=== PATIENT | male | born 1950 | race Caucasian/White ===

== ENCOUNTER 2023-10-03 18:46 | Emergency (ER) | payer MEDICARE, OTHER, SELFPAY ==
[2023-10-03 18:58] VITALS: BP 159/74
--- NOTE | 2023-10-03 19:31 | ED.GENMED ---
History of Present Illness
General
Chief Complaint: Skin Problem
Source: patient
Exam Limitations: none
Time Seen by Provider: 10/03/23 19:07
Travel History
Have you had any contact with someone who has COVID-19?: No
Do you have any symptoms of coronavirus? Fever > 100 degrees, chills, cough, shortness of breath, sore throat, loss of taste or smell, muscle aches, or headache?: No
History of Present Illness
History of Present Illness:
This is a 73 year old male that comes in with c/o right let possible infection. State that he has had swelling in the legs for the past 2 years and this goes up and down. States that the right leg is more swollen. States that he had a blister on the
right lower leg a week ago and he had an itch and went to scratch the itch and blister opened and drained. States that today there is some burning at the open area and it felt red and warm. States that he did take a Lasix 20mg today that he takes
occasionally. Denies any fever, chills, chest pain, SOB, abd pain, nausea, vomiting, diarrhea, headache, dizziness, urinary burning.
Past History
Past History
ED Past Medical History: HTN and Other (Chronic neck/back pain, DVT/PE, Cellulitis, )
ED Past Surgical History: Orthopedic (Neck fusion, Lumbar laminectomy T12, L1, L2, L3 fusion with rods and discs, Decompression herniate disc. )
Social History
Tobacco: Non-smoker
Alcohol: None
Drug: None
Personal:
Living: with family
Employment: Retired
Family History
Family History: Hypertension and CAD
Review of Systems
Review of Systems
All Other Systems: ROS reviewed and negative except as documented in HPI and ROS
Constitutional: Reports no symptoms; Denies fever or chills
EENT: Reports no symptoms
Respiratory: Reports no symptoms; Denies cough or trouble breathing
Cardiac: Reports no symptoms; Denies chest pain
ABD/GI: Reports no symptoms; Denies abdominal pain, nausea, vomiting or diarrhea
: Reports no symptoms
Musculoskeletal: Reports edema (Increased right leg)
Skin: Reports other (Open area on the right lower leg with redness and increased warmth)
Neurological: Reports no symptoms; Denies dizzy or headache
Psychiatric: Reports no symptoms
Phy Exam
General Physical Exam
General Presentation: well appearing and no apparent distress
General age: appears stated age
General Skin: warm and dry
General Habitus: elderly
General Mental: alert
General Hydration: appears well hydrated
ENT Exam
ENT Exam: TM's normal, pharynx normal and neck supple
Eye Exam
Eye Exam: EOMI
Cardiovascular Exam
Cardiovascular Exam: regular rate/rhythm and normal peripheral pulses
Pulmonary Exam
Pulmonary Exam: lungs clear, no respiratory distress, no rales, chest non tender, no crackles, no rhonchi, no wheezing and no cough
Gastrointestinal Exam
Gastrointestinal Exam: normal bowel sounds, non tender, soft, no organomegaly, no pulsatile mass, non distended and other (Obese)
Musculoskeletal Exam
Musculoskeletal Exam: full ROM and edema (Bilateral lower leg edema R>L +2 pitting, )
Skin Exam
Skin Exam: normal color, warm/dry, no rash, no petechia and other (quarter size open area on the medial posterior lower leg calf with increased redness and warmth)
Psychiatric Exam
Psychiatric Exam: normal mood/affect
Course
Orders/Labs/Results
Orders:
Orders
10/03/23 19:30
Legs, Bilateral US [US Periph Venous LOWER Ext Broderick] Urgent
Comment: history of DVT
Reason For Exam: lower leg swelling R>L
10/03/23 19:34
Cephalexin Monohydrate [Keflex] 500 mg PO NOW STA
10/03/23 20:02
Complete Blood Count/With Diff Urgent
Comprehensive Metabolic Panel Urgent
Lactate Level [Lactic Acid] Urgent
Abnormal Lab Results
10/03/23
20:02
RDW 14.7 H %
(11.5-14.5)
Abs Immat Gran (auto) 0.1 H 10^3/uL
(0-0.05)
Absolute Lymphs (auto) 1.1 L 10^3/uL
(1.2-3.4)
Immature Gran % 0.8 H %
(0-0.5)
Lymphocytes % 17.1 L %
(20.5-51.1)
BUN 21 H mg/dl
(9-20)
Glucose 114 H mg/dl
(70-99)
10/03/23 20:02
10/03/23 20:02
Very slight Dehydration. Glucose nonfasting. Lactic acid 1.2
Vital Signs
Initial and Last Documented VS:
Initial Vital Signs
Temp Pulse Resp BP Pulse Ox
98.3 F 84 18 159/74 95
10/03/23 18:58 10/03/23 18:58 10/03/23 18:58 10/03/23 18:58 10/03/23 18:58
Last Documented Vital Signs
Temp Pulse Resp BP Pulse Ox
98.0 F 74 18 141/85 95
10/03/23 22:20 10/03/23 22:20 10/03/23 22:20 10/03/23 22:20 10/03/23 22:20
MDM/Problems Addressed
Differential Diagnosis Includes:
DVT. Cellulitis,
MDM/Problems Addressed:
This is a 73 year old male that comes in with c/o right leg open wound. States that he had a blister a week ago and he went to scratch the leg and it opened. States that now the area is slightly red with increased warmth. States that the right leg
is more swollen then the left and he has had a DVT in the past. States that he did take Lasix 20mg today,
Will check labs. US both legs and start on Antibiotics for Cellulitis.
back into see patient. Explained that he is negative for DVT but he does have a Bakers cyst behind the left knee. Explained that his blood work show very slight Dehydration and his lactic acid is normal. Will place patient on antibiotics and have
him return with any increased redness or fever.
Chronic conditions affecting care:
history of DVT, Cellulitis
Acute Exacerbation and/or Progression of Chronic Illness:
Cellulitis,
*Pulse Oximetry
Patient hypoxic: no
*EKG
Interpreted by ED Provider?: NA
Rate: EKG- N/A
*Frame Cleaner Interpretation
Rate: Frame Cleaner- N/A
*Critical Care Note
Total Time (30-74mins, 75-104mins- exclusive of procedures): Not Applicable
ED Attending Note
-
Portions of this chart may have been created with voice recognition software.� Occasional wrong word or��sound alike� substitutions may have occurred due to the inherent limitations of voice recognition software.
Discharge Plan
Departure
Patient Disposition: Home (Routine Discharge)
Date of Disposition: 10/03/23
Time of Disposition: 22:30
Patient with high blood pressure during this ER visit?: Yes
Condition: Good
Covid-19: Not Applicable
Discharge Problem:
Cellulitis of right lower leg
Instructions: Wound Care (DC), Cellulitis (Skin Infection), Adult (DC), BLOOD PRESSURE
Prescriptions:
New
cephalexin 500 mg capsule
500 mg PO Q8H 7 Days Qty: 21 0RF
No Action
tamsulosin 0.4 MG capsule
0.4 mg PO BID
tizanidine 2 MG tablet
2 mg PO TID PRN (Reason: muscle spasms)
tramadol 50 MG tablet
50 mg PO DAILY PRN (Reason: moderate pain)
Patient Comments:
02/26/23: last filled 02/24/23, 30 tabs for 30 days from [facility]
multivitamin Tablet
1 tab PO DAILY
enalapril-hydrochlorothiazide 5-12.5 mg tablet
1 tab PO DAILY
omega 5-qyr-dse-fish oil [Fish Oil] 1,200 (144-216) mg Capsule
1 cap PO DAILY
furosemide [Lasix] 20 mg tablet
20 mg PO DAILY Qty: 14 0RF
Referrals:
Jalen Booker MD [Family Provider] - Follow up in 5-7 days
Activity Restrictions/Additional Instructions:
As discussed, your blood work shows very slight Dehydration. Your Lactic acid is normal. Your Ultrasound is negative for any blood clots but you do have a Bakers cyst behind the left knee. The right lower leg looks like this is a cellulitis. Please
keep the wound clean with warm soapy water. You may use Bacitracin to the area. You have also been place on an antibiotic for the next 7 days. Follow up with the family doctor in the next 5-7 days for recheck. IF YOU HAVE INCREASED REDNESS, FEVER,
OR YOU HAVE ANY OTHER CONCERNS PLEASE RETURN TO THE EMERGENCY ROOM.
Interventions
Interventions:
*Risk Screen - Suicide Last Done: 10/03/23 18:58
*General Assessment Last Done: 10/03/23 18:58
*Neglect/Abuse Screening Last Done: 10/03/23 18:58
ED- Fall Risk Assessment Last Done: 10/03/23 20:12
*ED COVID-19 Vaccine History Last Done: 10/03/23 20:11
Discharge Date and Time
Print Language: BULGARIAN
[2023-10-03 19:48] VITALS: BMI 43.4
[2023-10-03] MEDS: KEFLEX 500 MG PO (19:48)
[2023-10-03 20:19] LABS: % Basophils 0.5 % (0-2); % Eosinophils 2.7 % (0-6); % Immature Granulocytes 0.8 % (0-0.5); % Lymphocytes 17.1 % (20.5-51.1); % Monocytes 8.9 % (1.7-9.3); Absolute Eosinophils 0.2 10^3/uL (0-0.7); Absolute Immature Granulocytes 0.1 10^3/uL (0-0.05); Absolute Lymphocytes 1.1 10^3/uL (1.2-3.4); Absolute Monocytes 0.6 10^3/uL (0.1-0.6); Absolute Neutrophils 4.6 10^3/uL (1.4-6.5); Hematocrit 41.1 % (39.0-52.0); Hemoglobin 14.7 g/dL (13.0-18.0); Mean Corp Hgb Conc. 35.8 g/dL (33.0-37.0); Mean Corpuscular Hgb 30.5 pg (27.0-31.0); Mean Corpuscular Volume 85.3 fL (80.0-94.0); Mean Platelet Volume 9.7 fL (7.4-10.4); Nucleated Red Blood Cells % 0 % (-); Platelet Count 158 10^3/uL (130-400); Red Blood Cell Count 4.82 10^6/uL (4.70-6.10); Red Cell Dist. Width 14.7 % (11.5-14.5); White Blood Cell Count 6.6 10^3/uL (4.8-10.8)
[2023-10-03 20:30] LABS: Lactic Acid 1.2 mmol/L (0.7-2.0)
[2023-10-03 20:32] LABS: ALT (SGPT) 35 U/L (0-50); AST (SGOT) 38 U/L (17-59); Alkaline Phosphatase 88 U/L (38-126); Blood Urea Nitrogen 21 mg/dl (9-20); Calcium 9.2 mg/dl (8.4-10.2); Carbon Dioxide 25 mmol/L (22-30); Chloride 105 mmol/L (98-107); Estimated Creatinine Clearance 93 ml/min; Glucose 114 mg/dl (70-99); Potassium 3.9 mmol/L (3.5-5.1); Sodium 138 mmol/L (135-145); Total Bilirubin 0.9 mg/dl (0.2-1.3); Total Protein 6.4 g/dl (6.3-8.2); eGFR > 60.00
[2023-10-03 22:20] VITALS: BP 141/85
== END 2023-10-03 22:54 | disposition home or self-care (01) ==
LOC: EMR 18:46
PROVIDERS: Clinical Nurse Specialist Family Health; EMERGENCY PHYSICIAN Emergency Medicine; FAMILY PHYSICIAN Family Medicine
DX: L03.115 Cellulitis of right lower limb (principal); I10 Essential (primary) hypertension
CPT/HCPCS: 99284; 80053; 83605; 85025; 93970

== ENCOUNTER → 2023-10-22 12:48 | Outpatient (REF) | payer MEDICARE, OTHER, SELFPAY | LOC: WOUND 12:48 | PROVIDERS: ATTENDING PHYSICIAN Surgery; FAMILY PHYSICIAN Family Medicine | DX: I87.313 Chronic venous hypertension (idiopathic) with ulcer of bilateral lower extremity (principal); L97.211 Non-pressure chronic ulcer of right calf limited to breakdown of skin; L97.221 Non-pressure chronic ulcer of left calf limited to breakdown of skin; I87.2 Venous insufficiency (chronic) (peripheral); I89.0 Lymphedema, not elsewhere classified | CPT/HCPCS: 97597; 99204 ==

== ENCOUNTER 2023-11-19 01:43 | Emergency (ER) | payer MEDICARE, OTHER, SELFPAY ==
[2023-11-19 01:44] VITALS: BMI 45.4
[2023-11-19 01:48] VITALS: BP 149/94
--- NOTE | 2023-11-19 02:04 | ED.GENMED ---
History of Present Illness
<ELYSSA Marcos - Last Filed: 11/20/23 03:23>
General
Chief Complaint: Chest Pain
Source: patient
Exam Limitations: none
Time Seen by Provider: 11/19/23 01:54
History of Present Illness
History of Present Illness:
This is a 73 year old male that comes in with c/o SOB. States that he had fallen asleep in his lounge chair. States that he awoke an was Sweaty. States that he had pain in his neck and was SOB. States that this lasted for about a hour. States that
he took Tramadol and one ibuprofen. States that he is feeing better now. Denies any fever, chils, chest pain, abd pain, nausea, vomiting, diarrhea, headache, dizziness, urinary burning.
Past History
<ELYSSA Marcos - Last Filed: 11/20/23 03:23>
Past History
ED Past Medical History: HTN and Other (Chronic neck/back pain, DVT/PE, Cellulitis, )
ED Past Surgical History: Orthopedic (Neck fusion, Lumbar laminectomy T12, L1, L2, L3 fusion with rods and discs, Decompression herniate disc. )
Social History
Tobacco: Non-smoker
Alcohol: None
Drug: None
Personal:
Living: with family
Employment: Retired
Family History
Family History: Hypertension and CAD
Review of Systems
<ELYSSA Marcos - Last Filed: 11/20/23 03:23>
Review of Systems
All Other Systems: ROS reviewed and negative except as documented in HPI and ROS
Constitutional: Reports no symptoms; Denies fever or chills
EENT: Reports no symptoms
Respiratory: Reports trouble breathing; Denies cough
Cardiac: Reports no symptoms; Denies chest pain
ABD/GI: Reports no symptoms; Denies abdominal pain, nausea, vomiting or diarrhea
: Reports no symptoms; Denies dysuria, frequency or urgency
Musculoskeletal: Reports no symptoms
Skin: Reports no symptoms
Neurological: Reports no symptoms; Denies dizzy or headache
Psychiatric: Reports no symptoms
Phy Exam
<ELYSSA Marcos - Last Filed: 11/20/23 03:23>
General Physical Exam
General Presentation: no apparent distress
General age: appears stated age
General Skin: warm and dry
General Habitus: elderly and obese
General Mental: alert
General Hydration: appears well hydrated
ENT Exam
ENT Exam: TM's normal, pharynx normal and neck supple
Eye Exam
Eye Exam: EOMI
Cardiovascular Exam
Cardiovascular Exam: regular rate/rhythm and normal peripheral pulses
Pulmonary Exam
Pulmonary Exam: lungs clear, no respiratory distress, no rales, chest non tender, no crackles, no rhonchi, no wheezing and no cough
Gastrointestinal Exam
Gastrointestinal Exam: normal bowel sounds, non tender, soft, no organomegaly, no pulsatile mass, non distended and other (Obese)
Musculoskeletal Exam
Musculoskeletal Exam: full ROM and edema (pitting edema +1 bilateral lower legs)
Skin Exam
Skin Exam: normal color, warm/dry, no rash and no petechia
Psychiatric Exam
Psychiatric Exam: normal mood/affect
Scores
<ELYSSA Marcos - Last Filed: 11/20/23 03:23>
Heart Score for Chest Pain Patients
STEMI patient?: Not applicable
Course
<ELYSSA Marcos - Last Filed: 11/20/23 03:23>
Orders/Labs/Results
Orders:
Orders
11/19/23 01:50
ECG [Electrocardiogram (*1)] Urgent
Reason for Study: Chest Pain
11/19/23 01:51
EKG- Treatment ONCE
11/19/23 02:04
CR Chest - 2 Views Urgent
Comment:
Reason For Exam: SOB
11/19/23 02:18
Complete Blood Count/With Diff Urgent
Comprehensive Metabolic Panel Urgent
D-Dimer Urgent
NT-proBNP Urgent
Troponin I Urgent
11/19/23 02:55
EKG- Treatment ONCE
11/19/23 05:35
Troponin I Urgent
Abnormal Lab Results
11/19/23 11/19/23
02:18 05:35
RDW 14.8 H %
(11.5-14.5)
Absolute Monos (auto) 0.8 H 10^3/uL
(0.1-0.6)
Immature Gran % 0.6 H %
(0-0.5)
Lymphocytes % 17.0 L %
(20.5-51.1)
Monocytes % 11.2 H %
(1.7-9.3)
Glucose 100 H mg/dl
(70-99)
Troponin I 0.052 H* ng/ml 0.054 H* ng/ml
11/19/23 02:18
11/19/23 02:18
Glucose nonfasting. Troponin 0.052 ( patient chronically runs high, Will repeat in 3 hours ), Pro-BNP 160, D-dimer 0.40 negative.
Vital Signs
Initial and Last Documented VS:
Initial Vital Signs
Temp Pulse Resp BP Pulse Ox
98.0 F 80 16 149/94 94
11/19/23 01:48 11/19/23 01:48 11/19/23 01:48 11/19/23 01:48 11/19/23 01:48
Last Documented Vital Signs
Temp Pulse Resp BP Pulse Ox
98.0 F 76 16 146/78 95
11/19/23 01:48 11/19/23 06:45 11/19/23 06:45 11/19/23 04:00 11/19/23 06:45
<Gauri Delgado, DO - Last Filed: 11/19/23 06:37>
Orders/Labs/Results
Orders:
Orders
11/19/23 01:50
ECG [Electrocardiogram (*1)] Urgent
Reason for Study: Chest Pain
11/19/23 01:51
EKG- Treatment ONCE
11/19/23 02:04
CR Chest - 2 Views Urgent
Comment:
Reason For Exam: SOB
11/19/23 02:18
Complete Blood Count/With Diff Urgent
Comprehensive Metabolic Panel Urgent
D-Dimer Urgent
NT-proBNP Urgent
Troponin I Urgent
11/19/23 02:55
EKG- Treatment ONCE
11/19/23 05:35
Troponin I Urgent
Abnormal Lab Results
11/19/23 11/19/23
02:18 05:35
RDW 14.8 H %
(11.5-14.5)
Absolute Monos (auto) 0.8 H 10^3/uL
(0.1-0.6)
Immature Gran % 0.6 H %
(0-0.5)
Lymphocytes % 17.0 L %
(20.5-51.1)
Monocytes % 11.2 H %
(1.7-9.3)
Glucose 100 H mg/dl
(70-99)
Troponin I 0.052 H* ng/ml 0.054 H* ng/ml
11/19/23 02:18
11/19/23 02:18
Vital Signs
Initial and Last Documented VS:
Initial Vital Signs
Temp Pulse Resp BP Pulse Ox
98.0 F 80 16 149/94 94
11/19/23 01:48 11/19/23 01:48 11/19/23 01:48 11/19/23 01:48 11/19/23 01:48
Last Documented Vital Signs
Temp Pulse Resp BP Pulse Ox
98.0 F 76 16 146/78 95
11/19/23 01:48 11/19/23 06:45 11/19/23 06:45 11/19/23 04:00 11/19/23 06:45
<ELYSSA Marcos - Last Filed: 11/20/23 03:23>
MDM/Problems Addressed
Differential Diagnosis Includes:
Chronic neck pain,
MDM/Problems Addressed:
This is a 73 year old male that comes in with c/o neck pain and SOB. States that he awoke in his chair and he was sweaty and had neck pain. States that that he waited about one hour and he did not feel better so he came in.
Segun check labs, X-ray.
Back into see patient. Reviewed labs, chest x-ray adn troponin level. Explained that he will get his Second Troponin at 5:20am. If this remains the same patient can go home. Dr Delgado to follow up and discharge.
Chronic conditions affecting care:
Chronic neck pain
Acute Exacerbation and/or Progression of Chronic Illness:
Chrnonic neck pain
<ELYSSA Marcos - Last Filed: 11/20/23 03:23>
*Radiology
Radiology exam reviewed: preliminary read by ED provider (Chest- Negative for active disease. )
*Pulse Oximetry
Patient hypoxic: no
*EKG
Interpreted by ED Provider?: Yes
Heart Rate: 78
Rate: normal
Rhythm: sinus
[place]: left axis deviation
Interval: normal interval
QRS Pattern: right bundle branch block
Ischemia: no ischemia
*Gate Services Supervisor Interpretation
Rate: normal
Heart Rate: 88
Rhythm: sinus
*Critical Care Note
Total Time (30-74mins, 75-104mins- exclusive of procedures): Not Applicable
ED Attending Note
<ELYSSA Marcos - Last Filed: 11/20/23 03:23>
-
Portions of this chart may have been created with voice recognition software.� Occasional wrong word or��sound alike� substitutions may have occurred due to the inherent limitations of voice recognition software.
<Gauri Delgado DO - Last Filed: 11/19/23 06:37>
ED Attending Note
Patient seen and examined by attending physician: Yes
I performed the substantive portion of visit, reviewed & personally made and approve the management plan that is documented in note by myself or SID.: Yes
ED Attending Note:
Repeat troponin remains unchanged.
Patient continues to deny chest pain, resting comfortably admits that neck pain has markedly improved after taking tramadol/ibuprofen at home. Chronically maintained on tramadol twice daily for chronic neck and back pain.
He also has history of chronic bilateral lower extremity edema, venous insufficiency as well as lymphedema. BNP is low at 160 not consistent with CHF.
I suspect his neck pain is musculoskeletal in nature, may have been position in nature while sleeping in recliner.
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
Return precautions discussed.
Discharge Plan
Departure
Patient Disposition: Home (Routine Discharge)
Date of Disposition: 11/19/23
Time of Disposition: 06:32
Patient with high blood pressure during this ER visit?: No
Condition: Good
Discharge Problem:
ACUTE ON CHRONIC NECK PAIN, Chronic peripheral edema
Instructions: Lymphedema (DC), Chest Pain PCP Follow Up
Prescriptions:
No Action
tamsulosin 0.4 MG capsule
0.4 mg PO BID
tizanidine 2 MG tablet
2 mg PO TID PRN (Reason: muscle spasms)
tramadol 50 MG tablet
50 mg PO DAILY PRN (Reason: moderate pain)
Patient Comments:
02/26/23: last filled 02/24/23, 30 tabs for 30 days from [facility]
multivitamin Tablet
1 tab PO DAILY
enalapril-hydrochlorothiazide 5-12.5 mg tablet
1 tab PO DAILY
omega 7-odl-bny-fish oil [Fish Oil] 1,200 (144-216) mg Capsule
1 cap PO DAILY
furosemide [Lasix] 20 mg tablet
20 mg PO DAILY Qty: 14 0RF
cephalexin 500 mg capsule
500 mg PO Q8H 7 Days Qty: 21 0RF
Referrals:
Jalen Booker MD [Family Provider] - Call in 1-3 days for appt
Interventions
Interventions:
*Risk Screen - Suicide Last Done: 11/19/23 01:48
*Neglect/Abuse Screening Last Done: 11/19/23 01:48
*ED COVID-19 Vaccine History Last Done: 11/19/23 01:48
*Nursing Disposition Last Done: 11/19/23 06:52
ED- Cardiac Assessment Last Done: 11/19/23 03:16
Discharge Date and Time
Discharge Date/Time: 11/19/23 06:54
Print Language: [email or web address]
[2023-11-19 02:16] VITALS: BP 153/86
[2023-11-19 02:27] LABS: % Basophils 0.4 % (0-2); % Eosinophils 3.8 % (0-6); % Immature Granulocytes 0.6 % (0-0.5); % Monocytes 11.2 % (1.7-9.3); Absolute Eosinophils 0.3 10^3/uL (0-0.7); Absolute Lymphocytes 1.2 10^3/uL (1.2-3.4); Absolute Monocytes 0.8 10^3/uL (0.1-0.6); Absolute Neutrophils 4.6 10^3/uL (1.4-6.5); Hematocrit 42.3 % (39.0-52.0); Mean Corp Hgb Conc. 35.5 g/dL (33.0-37.0); Mean Corpuscular Hgb 29.8 pg (27.0-31.0); Mean Corpuscular Volume 83.9 fL (80.0-94.0); Mean Platelet Volume 9.6 fL (7.4-10.4); Nucleated Red Blood Cells % 0 % (-); Platelet Count 145 10^3/uL (130-400); Red Blood Cell Count 5.04 10^6/uL (4.70-6.10); Red Cell Dist. Width 14.8 % (11.5-14.5); White Blood Cell Count 6.9 10^3/uL (4.8-10.8)
[2023-11-19 02:54] LABS: ALT (SGPT) 43 U/L (0-50); Albumin 4.4 g/dl (3.5-5.0); Blood Urea Nitrogen 17 mg/dl (9-20); Calcium 9.2 mg/dl (8.4-10.2); Carbon Dioxide 26 mmol/L (22-30); Chloride 103 mmol/L (98-107); Estimated Creatinine Clearance 106 ml/min; Glucose 100 mg/dl (70-99); NT-proBNP 160 pg/ml; Sodium 137 mmol/L (135-145); Total Bilirubin 1.2 mg/dl (0.2-1.3); Total Protein 6.9 g/dl (6.3-8.2); Troponin I 0.052 ng/ml; eGFR > 60.00
[2023-11-19 03:00] VITALS: BP 160/81
[2023-11-19 03:02] LABS: AST (SGOT) 44 U/L (17-59); Alkaline Phosphatase 75 U/L (38-126); Potassium 3.8 mmol/L (3.5-5.1)
[2023-11-19 03:35] VITALS: BP 158/89
[2023-11-19 04:00] VITALS: BP 146/78
[2023-11-19 06:17] LABS: Troponin I 0.054 ng/ml
== END 2023-11-19 06:54 | disposition home or self-care (01) ==
LOC: EMR 01:43
PROVIDERS: Clinical Nurse Specialist Family Health; EMERGENCY PHYSICIAN Emergency Medicine; FAMILY PHYSICIAN Family Medicine
DX: G89.29 Other chronic pain (principal); M54.2 Cervicalgia; R60.0 Localized edema; I10 Essential (primary) hypertension
CPT/HCPCS: 99283; 71046; 80053; 83880; 84484; 85025; 85379; 93005

== ENCOUNTER 2023-12-17 04:58 | Emergency (ER) | payer MEDICARE, OTHER, SELFPAY ==
[2023-12-17 05:00] VITALS: BP 151/92
[2023-12-17 06:23] VITALS: BMI 45.5
--- NOTE | 2023-12-17 06:32 | ED.GENMED ---
History of Present Illness
General
Chief Complaint: Breathing Problem
Time Seen by Provider: 12/17/23 06:32
History of Present Illness
History of Present Illness:
HPI: The patient presents with several concerns:
#1�episode of shortness of breath. He states this is related to taking tizanidine and tramadol at the same time�he did this twice yesterday.
#2�chronic neck/back pain�he is scheduled for MRI later today ordered by Fabrizio Frausto
#3�abdominal pain�this has been ongoing for the past 2-month
EXAM:
GENERAL: Well appearing in no distress
HEENT: Moist oral mucosa
CARDIOVASCULAR: No murmurs, normal heart rate, regular rhythm, No chest wall tenderness
PULMONARY: No respiratory distress, breath sounds are clear and equal
ABDOMEN: Soft with no peritoneal signs, no tenderness, elevated BMI
BACK: Decreased active range of motion due to pain which is chronic
NEUROLOGIC: Excellent strength all extremities, no coordination deficits
PSYCHIATRIC: Appropriate mental status, normal insight and judgement
EXTREMITIES: Nontender, mild nonpitting edema both lower extremities, moves all extremities equally
SKIN: No rash, no lesions
TIME OF INITIAL ENCOUNTER: 6:40 AM
NUMBER AND COMPLEXITY OF PROBLEMS ADDRESSED AT THE ENCOUNTER
� Chronic conditions affecting care: Has had PE, high blood pressure
� Acute Exacerbation and/or Progression of Chronic Illness: These are acute on chronic problem
� Differential Diagnosis includes: Low suspicion for PE, medication reaction,
AMOUNT AND/OR COMPLEXITY OF DATA TO BE REVIEWED AND ANALYZED
� I performed an independent evaluation of and my interpretation is:
EKG: Sinus 78, left axis deviation, nonspecific ST abnormality, inferior Q waves
CT:
X-rays: Chest x-ray shows no acute abnormality
Laboratory Studies: CBC unremarkable, chemistries unremarkable however troponin is 0.068
Other:
� Review of other/old records: CTA chest February 2023 showed no PE, gallstones were seen on CT imaging of the abdomen pelvis. Troponin 1 month ago was 0.052 then 0.054.
� Clinical information was obtained by an independent historian:
� Prescriptions/Medications Considered but not given:
� Further testing considered but not performed: Considered CT of the chest and abdomen pelvis�see above as the patient had one this past February
RISK OF COMPLICATIONS AND/OR MORBIDITY OR MORTALITY OF PATIENT MANAGEMENT
� Social determinants of health affecting care: Lives at home
� Discussion with other providers: I discussed with Dr. Gato Moura at [facility] electroplater helper. He also recommends PMD follow-up and has an appointment to see him in a couple of weeks.
� Escalation of care including admission/observation vs risk of discharge considered: The patient has unremarkable lab work. He suspect symptoms may be related to taking tramadol and tizanidine at the same time. Troponin just
minimally higher than prior (was also elevated 1 month ago). On reassessment at 8:30 AM, the patient's main concern is his chronic neck/back pain. MRI is upcoming later today and [place] through [facility]. On reassessment at 11 AM, the patient
appears fairly comfortable other than his chronic back pain. I encouraged him to keep the legs elevated regarding his lower extremity edema that has been worsening while sitting in the chair (could not stay in structure due to back pain).
Past History
Past History
ED Past Medical History: HTN and Other (Chronic neck/back pain, DVT/PE, Cellulitis, )
ED Past Surgical History: Orthopedic (Neck fusion, Lumbar laminectomy T12, L1, L2, L3 fusion with rods and discs, Decompression herniate disc. )
Social History
Tobacco: Non-smoker
Alcohol: None
Drug: None
Personal:
Living: with family
Employment: Retired
Family History
Family History: Hypertension and CAD
Phy Exam
Physical Exam
Physical Exam:
See HPI
Scores
Heart Failure Risk
Heart Failure Risk Score: Not Applicable
Course
Orders/Labs/Results
Orders:
Orders
12/17/23 05:06
EKG [Electrocardiogram (*1)] Urgent
Reason for Study: Shortness of Breath
EKG- Treatment ONCE
12/17/23 06:57
Complete Blood Count/With Diff Urgent
Comprehensive Metabolic Panel Urgent
D-Dimer Urgent
Lipase Urgent
NT-proBNP Urgent
Troponin I Urgent
12/17/23 08:15
Ketorolac [Toradol] 15 mg IV NOW STA
12/17/23 08:19
CR Chest - 2 Views Urgent
Comment:
Reason For Exam: sob
12/17/23 09:29
Troponin I Urgent
Abnormal Lab Results
12/17/23 12/17/23
06:57 09:29
RDW 14.9 H %
(11.5-14.5)
Absolute Lymphs (auto) 1.1 L 10^3/uL
(1.2-3.4)
Absolute Monos (auto) 0.7 H 10^3/uL
(0.1-0.6)
Immature Gran % 0.6 H %
(0-0.5)
Lymphocytes % 14.9 L %
(20.5-51.1)
Monocytes % 9.9 H %
(1.7-9.3)
Glucose 105 H mg/dl
(70-99)
Troponin I 0.068 H* ng/ml 0.063 H* ng/ml
12/17/23 06:57
12/17/23 06:57
Vital Signs
Initial and Last Documented VS:
Initial Vital Signs
Temp Pulse Resp BP Pulse Ox
98.4 F 76 22 151/92 94
12/17/23 05:00 12/17/23 05:00 12/17/23 05:00 12/17/23 05:00 12/17/23 05:00
Last Documented Vital Signs
Temp Pulse Resp BP Pulse Ox
98.4 F 68 15 134/82 96
12/17/23 05:00 12/17/23 10:00 12/17/23 10:00 12/17/23 10:00 12/17/23 08:15
*Critical Care Note
Total Time (30-74mins, 75-104mins- exclusive of procedures): Not Applicable
ED Attending Note
-
Portions of this chart may have been created with voice recognition software.� Occasional wrong word or��sound alike� substitutions may have occurred due to the inherent limitations of voice recognition software.
Discharge Plan
Departure
Patient Disposition: Home (Routine Discharge)
Date of Disposition: 12/17/23
Time of Disposition: 11:02
Patient with high blood pressure during this ER visit?: Yes
Discharge Problem:
Shortness of breath, Back pain
Instructions: Shortness of Breath (Dyspnea) (DC), Back Pain
Prescriptions:
No Action
tamsulosin 0.4 MG capsule
0.4 mg PO BID
tizanidine 2 MG tablet
2 mg PO TIDPRN PRN (Reason: muscle spasms)
tramadol 50 MG tablet
50 mg PO BIDPRN PRN (Reason: moderate pain)
enalapril-hydrochlorothiazide 5-12.5 mg tablet
1 tab PO DAILY
omega 1-uuh-jfo-fish oil [Fish Oil] 1,200 (144-216) mg Capsule
1 cap PO DAILY
Theragen Tablet
1 tab PO DAILY
furosemide [Lasix] 20 mg tablet
20 mg PO DAILYPRN PRN (Reason: feet swelling)
Referrals:
Jalen Booker MD [Family Provider] -
Activity Restrictions/Additional Instructions:
You should still get your MRI at [place] today. I also spoke to Dr. Moura�follow-up with him in the next couple of weeks. He also recommends you follow-up with your primary care doctor. The cardiac blood work was slightly abnormal however
remained 'flat' and only minimally higher than last visit. The BNP level does not suggest any signs of congestive heart failure. The chest x-ray also showed no sign of heart failure. Try to keep your legs elevated to help with the swelling of
your legs. Return here if worse.
Interventions
Interventions:
*Risk Screen - Suicide Last Done: 12/17/23 05:07
*General Assessment Last Done: 12/17/23 05:07
*Neglect/Abuse Screening Last Done: 12/17/23 06:23
ED- Fall Risk Assessment Last Done: 12/17/23 07:05
*ED COVID-19 Vaccine History Last Done: 12/17/23 05:07
ED- Cardiac Assessment Last Done: 12/17/23 06:23
ED- Pulmonary Assessment Last Done: 12/17/23 06:23
Discharge Date and Time
Print Language: ARMENIAN
[2023-12-17 07:03] VITALS: BP 143/88
[2023-12-17 07:11] LABS: % Basophils 0.6 % (0-2); % Immature Granulocytes 0.6 % (0-0.5); % Lymphocytes 14.9 % (20.5-51.1); % Monocytes 9.9 % (1.7-9.3); Absolute Eosinophils 0.3 10^3/uL (0-0.7); Absolute Lymphocytes 1.1 10^3/uL (1.2-3.4); Absolute Monocytes 0.7 10^3/uL (0.1-0.6); Absolute Neutrophils 5.1 10^3/uL (1.4-6.5); Hematocrit 42.4 % (39.0-52.0); Hemoglobin 14.8 g/dL (13.0-18.0); Mean Corp Hgb Conc. 34.9 g/dL (33.0-37.0); Mean Corpuscular Hgb 29.7 pg (27.0-31.0); Mean Corpuscular Volume 85.1 fL (80.0-94.0); Mean Platelet Volume 9.8 fL (7.4-10.4); Nucleated Red Blood Cells % 0 % (-); Platelet Count 154 10^3/uL (130-400); Red Blood Cell Count 4.98 10^6/uL (4.70-6.10); Red Cell Dist. Width 14.9 % (11.5-14.5); White Blood Cell Count 7.2 10^3/uL (4.8-10.8)
[2023-12-17 07:19] LABS: ALT (SGPT) 44 U/L (0-50); AST (SGOT) 46 U/L (17-59); Albumin 4.3 g/dl (3.5-5.0); Alkaline Phosphatase 75 U/L (38-126); Blood Urea Nitrogen 20 mg/dl (9-20); Calcium 9.2 mg/dl (8.4-10.2); Carbon Dioxide 29 mmol/L (22-30); Chloride 101 mmol/L (98-107); Estimated Creatinine Clearance 96 ml/min; Glucose 105 mg/dl (70-99); Lipase 217 U/L (23-300); Sodium 137 mmol/L (135-145); Total Bilirubin 0.9 mg/dl (0.2-1.3); Total Protein 6.5 g/dl (6.3-8.2); eGFR > 60.00
[2023-12-17 07:38] LABS: NT-proBNP 213 pg/ml; Troponin I 0.068 ng/ml
--- NOTE | 2023-12-17 07:42 | EDRN ---
Dr Narvaez notified of critical value troponin
[2023-12-17 08:00] VITALS: BP 177/100
[2023-12-17 08:02] VITALS: BP 167/101
[2023-12-17 08:16] LABS: D-Dimer 0.34 ug/mlFEU (0.00-0.50)
[2023-12-17] MEDS: TORADOL 15 MG IV (08:22)
[2023-12-17 09:00] VITALS: BP 134/69
[2023-12-17 10:00] VITALS: BP 134/82
[2023-12-17 10:38] LABS: Troponin I 0.063 ng/ml
--- NOTE | 2023-12-17 10:40 | EDRN ---
Dr Gonzalez aware of critcal value troponin
== END 2023-12-17 11:15 | disposition home or self-care (01) ==
LOC: EMR 04:58
PROVIDERS: EMERGENCY PHYSICIAN Emergency Medicine; FAMILY PHYSICIAN Family Medicine
DX: R06.02 Shortness of breath (principal); M54.9 Dorsalgia, unspecified; M54.2 Cervicalgia; R60.0 Localized edema; I10 Essential (primary) hypertension; G89.29 Other chronic pain; Z86.718 Personal history of other venous thrombosis and embolism; Z86.711 Personal history of pulmonary embolism; Z98.1 Arthrodesis status; M43.22 Fusion of spine, cervical region
CPT/HCPCS: 99284; 96374; 71046; 80053; 83690; 83880; 84484; 85025; 85379; 93005

== ENCOUNTER 2024-12-24 13:19 | Inpatient (IN) | payer MEDICARE, OTHER, SELFPAY ==
[2024-12-24] VITALS (12 sets, daily range): BP systolic 96–144; BP diastolic 58–93; BMI 43.9; BMI 43.4
--- NOTE | 2024-12-24 08:31 | ED.GENMED ---
History of Present Illness
General
Chief Complaint: Skin Problem
Time Seen by Provider: 12/24/24 08:28
History of Present Illness
History of Present Illness:
PAST MEDICAL HISTORY AND REVIEW OF OLD RECORDS
- The patient has history of postoperative DVT, high blood pressure, has had cellulitis in the past.
Note:
CHIEF COMPLAINT(S)
Pain and swelling in the left leg.
HISTORY OF PRESENT ILLNESS
The patient is a 74-year-old male presenting with pain and swelling in the left leg. The patient reports that the pain is most pronounced in the upper part of the leg but has recently extended to the lower part. The area is described as burning and
tender to touch. The patient describes it as feeling similar to a previous experience with deep vein thrombosis after surgery. The leg is warm upon examination.
The patient experienced a significant fever peaking at 103�F on evening after feeling well throughout the day. The fever started after supper and escalated over two hours, for which he took acetaminophen. The fever has since decreased. The
patient mentions dark urine but denies any dysuria or burning sensation during urination. Additionally, the patient notes that his initial blood pressure was low, and he expressed feeling not too bad aside from the leg pain.
ADDITIONAL HISTORY OBTAINED FROM SOURCES OTHER THAN THE PATIENT
No additional sources provided information for this visit.
CHRONIC MEDICAL CONDITIONS SIGNIFICANTLY AFFECTING CARE
History of blood clot formation after surgery.
PHYSICAL EXAM
General: Alert, no acute distress other than some discomfort in the left lower extremity. Elevated BMI.
Skin: Warm, there is some serous weeping of fluid to the left lower extremity distal. The patients left leg is diffusely tender, swollen, and warm to the touch primarily from the proximal thigh on down.
Cardiovascular: The patient is tachycardic with heart rate in the 115 range, no murmurs
Respiratory: Respirations are non-labored. Breath sounds are clear and equal
Gastrointestinal: Abdomen nondistended.
Neurological: Alert and oriented to person, place, time, and situation.
Psychiatric: Cooperative, appropriate mood & affect.
PROBLEM LIST
Acute Problems:
- Suspicion of left leg infection.
- Fever with a peak of 103�F.
- Lowered blood pressure.
- Tachycardia.
PLAN
- Administer intravenous antibiotics to address suspected infection.
- Order an ultrasound to assess for potential deep vein thrombosis in the left leg.
- Perform blood work for additional diagnostic evaluation. Blood cultures/lactic
- Begin intravenous fluids to address low blood pressure and dehydration symptoms.
DIFFERENTIAL DIAGNOSIS
The Differential Diagnosis includes, in no particular order and is not limited to:
1. Cellulitis
2. Deep vein thrombosis
3. Necrotizing fasciitis
4. Compartment syndrome
5. Thrombophlebitis
6. Peripheral arterial disease
7. Venous stasis
8. Lymphedema
9. Erysipelas
10. Soft tissue sarcoma
SUMMARY OF ENCOUNTER
The patient, a 74-year-old male, was seen in the emergency department for pain and swelling in the left leg, along with a recent history of a high fever and dark urine. On examination, significant findings include a high white blood cell count,
lowered blood pressure, tachycardia, and symptoms consistent with sepsis, such as fever and elevated heart rate. An ultrasound ruled out deep vein thrombosis. Intravenous antibiotics were administered due to the suspicion of a serious infection, and
plans were made for hospital admission due to concerns of sepsis and the need for more intensive management.
DISPOSITION
Admit
ASSESSMENT
The patient presents with signs consistent with a serious infection and systemic inflammatory response, likely sepsis. Bunch findings include lower extremity pain and swelling, fever, tachycardia, and elevated white blood cell count.
EMERGENCY TREATMENTS ADMINISTERED
Intravenous antibiotics were administered, specifically two grams of an unspecified antibiotic due to the suspicion of sepsis.
PLAN
The plan includes admission to the hospital for further evaluation and management of suspected sepsis and to monitor and treat the infection effectively. Further diagnostic work-up to identify the source of infection and supportive care for the
patients hemodynamic status is warranted.
INDEPENDENT REVIEW OF LABS AND INTERPRETATION OF TESTS
My independent review of the Complete Blood Count (CBC) indicates elevated white blood cell count consistent with infection. My independent review of the ultrasound study indicates the absence of deep vein thrombosis in the left leg.
MEDICAL DECISION MAKING
-Complexity of Data Reviewed: Chronic conditions affecting care include a history of blood clot formation after surgery, with a differential diagnosis list that includes cellulitis, deep vein thrombosis, necrotizing fasciitis, compartment syndrome,
thrombophlebitis, peripheral arterial disease, venous stasis, lymphedema, erysipelas, and soft tissue sarcoma.
-Data:
Category 1
My independent interpretation of the ultrasound study rules out deep vein thrombosis. The patients white blood cell count is significantly elevated.
-Risk: The decision to admit the patient due to concerns of sepsis and the need for further diagnostic testing and intensive management underscores the high risk of complications or morbidity associated with the patients condition.
DIAGNOSIS
Sepsis (R65.20) due to suspected infection with elevated white blood cell count and systemic signs. Left leg cellulitis (L03.116) is suspected based on presentation of leg pain, swelling, tenderness, and warmth.
RADIOLOGY
- Ultrasound no DVT
LABS
- White count 23, lactic 2.4
UPDATE
- Hospitalist for admission
Past History
Past History
ED Past Medical History: HTN and Other (Chronic neck/back pain, DVT/PE, Cellulitis, )
ED Past Surgical History: Orthopedic (Neck fusion, Lumbar laminectomy T12, L1, L2, L3 fusion with rods and discs, Decompression herniate disc. )
Social History
Tobacco: Non-smoker
Alcohol: None
Drug: None
Personal:
Living: with family
Employment: Retired
Family History
Family History: Hypertension and CAD
Phy Exam
Physical Exam
Physical Exam:
See HPI
Course
Orders/Labs/Results
Orders:
Orders
12/24/24 08:35
US Periph Venous LOWER Ext LT Urgent
Comment:
Reason For Exam: swelling prior DVT in past
12/24/24 08:36
CeFAZolin 2 GRAM [Ancef] 2 grams in 10 ml IV NOW
12/24/24 08:37
Urinalysis Reflex To Culture Urgent
12/24/24 08:50
Complete Blood Count/With Diff Urgent
Comprehensive Metabolic Panel Urgent
Lactic Acid Q4H
Comment: CANCEL 2nd LACTIC ACID IF 1st LACTIC ACID IS LESS THAN 2
Manual Differential Urgent
Blood Culture Q30M
SHERLYN Source: Blood/Venous
Specimen Description:
12/24/24 09:31
0.9% Sodium Chloride 1000 ml [Nss] 1,000 ml IV BOLUS
0.9% Sodium Chloride 500 ml [Nss] 500 ml IV BOLUS
12/24/24 09:50
Blood Culture Q30M
SHERLYN Source: Blood/Venous
Specimen Description:
12/24/24 10:19
0.9% Sodium Chloride 1000 ml [Nss] 1,000 ml IV BOLUS
12/24/24 12:45
Lactic Acid Q4H
Comment: CANCEL 2nd LACTIC ACID IF 1st LACTIC ACID IS LESS THAN 2
Abnormal Lab Results
12/24/24
08:50
WBC 23.7 H 10^3/uL
(4.8-10.8)
RDW 16.6 H %
(11.5-14.5)
Abs Neuts (Manual) 22.2 H 10^3/uL
(1.4-6.5)
Band Neutrophils 27 H %
(0-3)
Lymphocytes (Manual) 1 L %
(20-51)
Sodium 133 L mmol/L
(135-145)
BUN 35 H mg/dl
(9-20)
Glucose 132 H mg/dl
(70-99)
Lactic Acid 2.4 H mmol/L
(0.7-2.0)
Total Bilirubin 1.6 H mg/dl
(0.2-1.3)
12/24/24 08:50
12/24/24 08:50
Vital Signs
Initial and Last Documented VS:
Initial Vital Signs
Temp Pulse Resp BP Pulse Ox
36.9 C 105 18 96/65 97
12/24/24 08:01 12/24/24 08:01 12/24/24 08:01 12/24/24 08:01 12/24/24 08:01
Last Documented Vital Signs
Temp Pulse Resp BP Pulse Ox
36.9 C 104 26 109/64 94
12/24/24 08:01 12/24/24 10:00 12/24/24 10:00 12/24/24 10:00 12/24/24 10:00
*Pulse Oximetry
SaO2: 97
Oxygen Mode of Delivery: Room air
Patient hypoxic: no
*Critical Care Note
Total Time (30-74mins, 75-104mins- exclusive of procedures): Not Applicable
ED Attending Note
-
Portions of this chart may have been created with voice recognition software.� Occasional wrong word or��sound alike� substitutions may have occurred due to the inherent limitations of voice recognition software.
Discharge Plan
Departure
Patient Disposition: Admit
Date of Disposition: 12/24/24
Time of Disposition: 10:40
Presentation/result/management discussed w/ accepting MD/DO: Hospitalist
Patient with high blood pressure during this ER visit?: Yes
Discharge Problem:
Sepsis due to cellulitis
Prescriptions:
No Action
tamsulosin 0.4 MG capsule
0.4 mg PO BID
tizanidine 2 MG tablet
2 mg PO TIDPRN PRN (Reason: muscle spasms)
tramadol 50 MG tablet
50 mg PO BIDPRN PRN (Reason: moderate pain)
enalapril-hydrochlorothiazide 5-12.5 mg tablet
1 tab PO DAILY
omega 4-jtr-kwt-fish oil [Fish Oil] 1,200 (144-216) mg Capsule
1 cap PO DAILY
Theragen Tablet
1 tab PO DAILY
furosemide [Lasix] 20 mg tablet
20 mg PO DAILYPRN PRN (Reason: feet swelling)
Referrals:
UNKNOWN,NO INTERVIEW [Unknown Provider]
Interventions
Interventions:
*Risk Screen - Suicide Last Done: 12/24/24 08:01
*General Assessment Last Done: 12/24/24 08:01
*Neglect/Abuse Screening Last Done: 12/24/24 08:01
Discharge Date and Time
Print Language: SERBIAN
[2024-12-24 09:09] LABS: Hematocrit 40.4 % (39.0-52.0); Hemoglobin 13.8 g/dL (13.0-18.0); Mean Corp Hgb Conc. 34.2 g/dL (33.0-37.0); Mean Corpuscular Volume 84.7 fL (80.0-94.0); Platelet Count 152 10^3/uL (130-400); Red Cell Dist. Width 16.6 % (11.5-14.5)
[2024-12-24 09:35] LABS: ALT (SGPT) 30 U/L (0-50); AST (SGOT) 27 U/L (17-59); Albumin 3.7 g/dl (3.5-5.0); Alkaline Phosphatase 67 U/L (38-126); Blood Urea Nitrogen 35 mg/dl (9-20); Calcium 8.6 mg/dl (8.4-10.2); Carbon Dioxide 27 mmol/L (22-30); Chloride 100 mmol/L (98-107); Glucose 132 mg/dl (70-99); Potassium 4.0 mmol/L (3.5-5.1); Sodium 133 mmol/L (135-145); Total Protein 6.4 g/dl (6.3-8.2); eGFR > 60.00
[2024-12-24] MEDS: NSS 1000 IV ×2 (09:53→11:29)
[2024-12-24] MEDS: NSS 500 IV (09:53)
[2024-12-24] MEDS: ANCEF 10 IV ×2 (09:54→17:36)
[2024-12-24 10:13] LABS: Absolute Neutrophils -Man Diff 22.2 10^3/uL (1.4-6.5); Normal RBC Morphology Yes; Nucleated Red Blood Cells % 0 % (-); Platelets Checked Yes; Total Cells Counted 100
--- NOTE | 2024-12-24 11:16 | HPS.HSE ---
Addendum entered and electronically signed by Felicia Butterfield MD 12/25/24 14:13:
Correction
As blood pressure remained stable try not to give IV fluids as he may need dialysis soon
Should be read as
As blood pressure remained stable try not to give IV fluids as he may need diuresis soon
Original Note:
Family Physician
-
Family Physician: Jalen Booker
Chief Complaint
-
Left leg pain and swelling
History of Present Illness
73-year-old with pain and swelling in the left leg he also had a fever of 103 on . He stated that the leg started looking red and overnight it was really bad looking. He had chills..
Medical History
Past Medical History
Past Medical History: Reports Other
Additional Past Medical History:
Chronic back pain, pulmonary embolism, history of DVT, hypertension, enlarged prostate, cervical stenosis status post surgery,
Past Surgical History: Reports Other
Additional Past Surgical History:
Neck fusion, lumbar laminectomy, L1-L2-L3 fusion with rods and disks, decompression of the herniated disc, sinus surgery
Social History
Tobacco: Non-smoker
Alcohol: None
Drug: None
Personal:
Living: With Family
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
Family History
Family History: Cancer (gastric cancer father) and Other (chf mom)
Allergies / Home Medications
Allergies reflects when Allergies were last updated in [facility].
Home Medications with original date entered in [facility]
Allergy/Medication List:
Allergies
Allergy/AdvReac Type Severity Reaction Status Date / Time
No Known Allergies Allergy Verified 12/17/23 05:00
Home Medications
tamsulosin 0.4 mg capsule 0.4 mg PO BID Urinary issue 01/08/18
tizanidine 2 mg tablet 2 mg PO TIDPRN PRN muscle spasms 07/25/21
tramadol 50 mg tablet 50 mg PO BIDPRN PRN moderate pain 07/25/21
enalapril 5 mg-hydrochlorothiazide 12.5 mg tablet 1 tab PO DAILY Blood Pressure 02/26/23
omega 9-lmd-ian-fish oil 1,200 mg (144 mg-216 mg) capsule (Fish Oil) 1 cap PO DAILY Supplement 02/26/23
therapeutic multivitamin 1 tab PO DAILY Supplement 12/17/23
finasteride 5 mg tablet 5 mg PO DAILY 12/24/24
Review of Systems
-
A 12 point ROS was completed and negative except as noted: Yes
Constitutional: Reports Fever and Chills
Cardiac: Denies Chest Pain
Abdomen/GI: Denies Abdominal Pain
Musculoskeletal: Reports Edema and Other (redness leg)
Physical Exam
Vital Signs
Vital Signs
Temp Pulse Resp BP Pulse Ox
98.4 F 104 26 109/64 94
12/24/24 08:01 12/24/24 10:00 12/24/24 10:00 12/24/24 10:00 12/24/24 10:00
Physical Exam
General: Conversant
Respiratory: Clear
Cardiac: S1/S2 and Regular Rhythm
GI: Soft, Non Tender and Normal Bowel Sounds
Musculoskeletal: Edema, Left Lower Extremity and Edema, Right Lower Extremity
Skin: Other (Left leg with oozing small skin breaks redness all the way up to the thigh severely swollen.)
Neuro: AO x 3, Cranial Nerves Intact and Other (Able to move but restricted secondary to being in bed)
Psych: Intact Judgment/Insight
Laboratory Results
-
12/24/24 08:50
12/24/24 08:50
Laboratory Results
Lactic Acid 2.4 mmol/L (0.7-2.0) H 12/24/24 08:50
Total Bilirubin 1.6 mg/dl (0.2-1.3) H 12/24/24 08:50
AST 27 U/L (17-59) 12/24/24 08:50
ALT 30 U/L (0-50) 12/24/24 08:50
Alkaline Phosphatase 67 U/L (38-126) 12/24/24 08:50
Impression/Plan
-
IMPRESSION/PLAN:
Ultrasound of the leg-no evidence of DVT
# Sepsis secondary to left lower extremity cellulitis
Patient has chronic lymphedema he states that he was wrapping it but bilateral legs are extremely swollen
Omar bandages applied
Ancef 2 g every 8 hours for cellulitis
Mild hypotension-improved with IV fluids
As blood pressure remained stable try not to give IV fluids as he may need dialysis soon
Follow-up white cell count
# Lactic acidosis-follow
# Hypertension-hold antihypertensives-enalapril hydrochlorothiazide
# Mild hyponatremia-follow
# Prostate disease-continue finasteride and Flomax
# Chronic back pain with multiple back surgeries-7 surgeries
# History of DVT and PE-DVT prophylaxis 40 mg of Lovenox twice daily given patient's BMI
# Obesity with a BMI of 43
# DVT prophylaxis-Lovenox
# CODE STATUS-full code
Discussed with nursing at bedside
Part of this note was created using voice recognition system. Occasional wrong word or��sound alike� substitutions may have inadvertently occurred due to the inherent limitations of voice recognition software. If noted kindly bring it to my
attention for correction.
--- NOTE | 2024-12-24 12:11 | CM ---
Reviewed the chart notes and spoke with the patient at the bedside. Patient presenting with pain and swelling in the left leg. The patient reside with his spouse in a two story home. The patient has a stair glide and pneumatic stockings. The
patient reports no VN or SNF in the past. The patient confirmed his pharmacy of choice is [facility] [address] [place]. CM continues to be available to patient/family and is monitoring medical plan for needs at discharge.
Plan: Discharge plans will depend on the patient's progress.
[2024-12-24] MEDS: TYLENOL 1000 MG PO ×2 (13:46→20:29)
[2024-12-24 14:07] LABS: Urine Character Clear (Clear)
[2024-12-24 14:30] LABS: Urine Squamous Cell 0-2 /LPF (Few); Urine White Cell 0-2 /HPF (0-5)
--- NOTE | 2024-12-24 15:59 | PTCARENOTE ---
Received patient from ED via stretcher. Pt AAOX3. Pox: 96 % RA. ST on quality assurance monitor body. Pt denies pain/SOB. Call soler within reach. Plan of care ongoing
[2024-12-24] MEDS: PROSCAR 5 MG PO (17:18)
[2024-12-24] MEDS: LOVENOX 40 MG SC (17:18)
[2024-12-24] MEDS: ULTRAM 50 MG PO (17:23)
[2024-12-24] MEDS: FLUSH (NSS) 1 FLUSH IV (17:37)
[2024-12-24] MEDS: SENOKOT 17.2 MG PO (20:21)
[2024-12-24] MEDS: FLOMAX 0.4 MG PO (20:21)
[2024-12-25] VITALS (7 sets, daily range): BP systolic 98–135; BP diastolic 62–81
[2024-12-25] MEDS: FLUSH (NSS) 1 FLUSH IV (01:53)
[2024-12-25] MEDS: ANCEF 10 IV ×2 (01:53→09:54)
[2024-12-25] MEDS: THERAGRAN 1 TABLET PO (07:59)
[2024-12-25] MEDS: FLOMAX 0.4 MG PO ×2 (07:59→21:02)
[2024-12-25] MEDS: PROSCAR 5 MG PO (08:00)
[2024-12-25] MEDS: ULTRAM 50 MG PO ×2 (08:07→21:00)
[2024-12-25 09:57] LABS: Hematocrit 40.1 % (39.0-52.0); Hemoglobin 13.4 g/dL (13.0-18.0); Mean Corp Hgb Conc. 33.4 g/dL (33.0-37.0); Mean Corpuscular Volume 85.0 fL (80.0-94.0); Platelet Count 151 10^3/uL (130-400); Red Cell Dist. Width 16.6 % (11.5-14.5)
[2024-12-25 10:23] LABS: Blood Urea Nitrogen 32 mg/dl (9-20); Calcium 8.2 mg/dl (8.4-10.2); Carbon Dioxide 23 mmol/L (22-30); Chloride 102 mmol/L (98-107); Estimated Creatinine Clearance 92 ml/min; Glucose 160 mg/dl (70-99); Potassium 3.7 mmol/L (3.5-5.1); Sodium 135 mmol/L (135-145); eGFR > 60.00
[2024-12-25] MEDS: TYLENOL 1000 MG PO ×2 (11:39→21:01)
[2024-12-25] MEDS: LASIX 40 MG IV ×2 (12:30→16:10)
[2024-12-25] MEDS: KCL 20 MEQ PO ×2 (12:36→21:02)
--- NOTE | 2024-12-25 13:59 | CON.ID ---
Consultation
-
Date/Time Consultation Requested: December 25, 2024 1226
Date/Time Consultation Performed: December 25, 2024 1400
Requesting Provider: Dr. Felicia Butterfield
Performing Provider: Dr. Silva Mcclure
Reason for Consultation: Severe cellulitis
Chief Complaint / Past History
Chief Complaint
Left leg swelling and redness
History of Present Illness
74-year-old male with history of bilateral lower extremity lymphedema who presented to the hospital with left leg cellulitis. Patient reports that he he is compliant with compression wraps for the lymphedema at home. However on evening,
he developed sudden onset of chills and he noted that his left leg was swollen and red. Also had temperature up to 103. On Thursday, the erythema progressed up to his groin. He therefore came to the ER yesterday. White count of 23.7 with bandemia.
Venous duplex no DVT. He was started on ceftriaxone. Blood culture 1 out of 2 positive for Streptococcus pyogenes. He reports the thigh firmness and pain have improved since being in the hospital. Denies injury to the leg. He he thinks source
may have been from cutting his big left toenail and sometimes he nicked the skin.
Past History
Additional Past Medical History:
Hypertension
PE/DVT
BPH
Bilateral lower extremity lymphedema
Class III obesity BMI 43
L1�L2-L3 fusion with rods
Allergy History:
No Known Allergies Allergy (Verified 12/17/23 05:00)
Medications Reviewed: Yes
Current Antibiotics:
Cefazolin 2q8
Social History
Tobacco: Non-Smoker
Alcohol: None
Drug: None
Personal:
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
Review of Systems
Review of Systems
General: Fever, Chills and Change in Appetite
HEENT: Negative Sinus Problems, Headache or Pharyngitis
Cardiovascular: Negative Chest Pain or Dyspnea
Respiratory: Negative Dyspnea or Cough
Gasteroenterology: Negative Nausea, Vomiting or Diarrhea
Genital / Urological: Negative Dysuria or Flank Pain
Endocrine: Weakness
All systems: All other systems were reviewed and were negative
Vital Signs
Temp Pulse Resp BP Pulse Ox
98.1 F 103 20 140/90 98
12/25/24 11:13 12/25/24 12:30 12/25/24 11:13 12/25/24 12:30 12/25/24 11:13
Physical Exam
Physical Exam
Constitutional: No Acute Distress
Eyes: No Conjunctival Hemorrhage and Sclera Anicteric
Cardiovascular: Regular Rate and S1/S2
Pulmonary: Clear
Gastrointestinal: Soft, Non Tender, Non Distended and Normal Bowel Sounds
Genito-Urinary: Negative CVA Tenderness
Extremities: Edema (LLE>>RLE) and Erythema (Significant intense erythema from foot to medial groin. + warm. + developing blosters)
Neurological: AO x 3
Lab / Diagnostic Study Results
12/25/24 08:45
12/25/24 08:45
Total Counted 100 12/24/24 08:50
Abs Neuts (Manual) 22.2 10^3/uL (1.4-6.5) H 12/24/24 08:50
Segmented Neutrophils 67 % (42-75) 12/24/24 08:50
Band Neutrophils 27 % (0-3) H 12/24/24 08:50
Lymphocytes (Manual) 1 % (20-51) L 12/24/24 08:50
Lactic Acid 1.3 mmol/L (0.7-2.0) 12/24/24 13:38
Ur Squamous Epith Cells 0-2 /LPF (Few) 12/24/24 13:38
Microbiology Results
Micro:
12/25/24 11:20 Blood Culture - Pending
Blood/Venous
12/24/24 09:50 Blood Culture - Preliminary
Blood/Venous No Growth in 24 hours- Final report to follow
12/24/24 08:50 Blood Culture - Preliminary
Blood/Venous Streptococcus pyogenes
Gram Stain - Final
12/24/24 16:07 MRSA Screen - Pending
Nose
Assessment / Plan
# Severe LLE cellulitis due to Group A streptococcus.
# Group A strep bacteremia, 1 of 2 sets)
# Leukocytosis with bandemia
# Hx chronic BLE lymphedema
# Class III obesity
- Replace cefazolin with ceftriaxone 2g q24h.
- Add clindamycin 900mg iv q8 short course as toxin inhibitor.
- Trend WBC/temps
- Omar-wrap compression and leg elevation
Care Review
Plan reviewed with: Physician (Dr. Butterfield)
--- NOTE | 2024-12-25 14:08 | W.PN.HOSP.TC ---
Today's Communication/Plan
-
IV antibiotics
Stressed the importance for leg elevation
Lasix
Compression therapy
Repeat blood cultures
Assessment / Plan
Assessment / Plan
Patient stated that he could not sleep in the bed last night as he has a bad back. He sat in the chair with legs hanging down all night and then went to bed early this morning. When I saw him he was sitting in a recliner but the leg was hanging
down. Swelling has increased overnight. Legs were elevated in the recliner
Dressing taken down he has a lot of edema today with weeping skin in the left leg. Redness all the way up to the thigh. No evidence of fluctuance. Patient states that the pain is better than yesterday.
Awake alert oriented
Cardiovascular system S1-S2 appreciated
Chest clear to auscultation
Abdomen soft and nontender
Bilateral edema 4+ redness in the left leg with small skin breaks with oozing no fluid noted.
# Streptococcus pyogenes sepsis secondary to left lower extremity cellulitis
Patient has chronic lymphedema he states that he was wrapping it but bilateral legs are extremely swollen
Omar bandages applied
Ancef 2 g every 8 hours for cellulitis
White cell count slightly better
Start diuresis with IV Lasix 40 mg IV twice daily
Infectious disease consultation has positive blood cultures
Repeat blood cultures ordered
# Lactic acidosis-resolved
# Hypertension-hold antihypertensives-enalapril hydrochlorothiazide
# Mild hyponatremia-follow
# Prostate disease-continue finasteride and Flomax
# Chronic back pain with multiple back surgeries-7 surgeries
# History of DVT and PE-DVT prophylaxis 40 mg of Lovenox twice daily given patient's BMI
# Obesity with a BMI of 43
# DVT prophylaxis-Lovenox
# CODE STATUS-full code
Discussed with nursing at bedside
D/W ID
Part of this note was created using voice recognition system. Occasional wrong word or��sound alike� substitutions may have inadvertently occurred due to the inherent limitations of voice recognition software. If noted kindly bring it to my
attention for correction.
Anticipated Discharge: > 48 hours
Subjective/Interval History
-
Date of Service: December 25, 2024
Objective Data
-
Labs:
Laboratory Results
12/25/24
08:45
WBC 20.6 H
Hgb 13.4
Hct 40.1
Plt Count 151
Sodium 135
Potassium 3.7
Chloride 102
Carbon Dioxide 23
BUN 32 H
Creatinine 1.0
Glucose 160 H
Calcium 8.2 L
Vital Signs:
Vital Signs
Temp Pulse Resp BP Pulse Ox
98.1 F 103 20 140/90 98
12/25/24 11:13 12/25/24 12:30 12/25/24 11:13 12/25/24 12:30 12/25/24 11:13
I&O
12/24/24 12/25/24 12/26/24
06:59 06:59 06:59
Intake Total 960 / 960
Output Total 325 / 325
Balance 635 / 635
[2024-12-25] MEDS: ROCEPHIN 2000 MG IV (14:49)
[2024-12-25] MEDS: STERILE WATER FOR INJECTION 20 ML IV (14:49)
[2024-12-25] MEDS: CLEOCIN 50 IV (15:25)
[2024-12-25 16:28] LABS: Hepatitis C Antibody Negative (Negative)
[2024-12-25] MEDS: SENOKOT 17.2 MG PO (21:02)
[2024-12-25] MEDS: LOVENOX 40 MG SC (21:03)
[2024-12-26] MEDS: CLEOCIN 50 IV ×4 (00:28→23:59)
[2024-12-26 03:41] VITALS: BP 117/71
[2024-12-26 08:27] VITALS: BP 124/68
[2024-12-26 08:28] LABS: Hematocrit 38.9 % (39.0-52.0); Hemoglobin 13.0 g/dL (13.0-18.0); Mean Corp Hgb Conc. 33.4 g/dL (33.0-37.0); Mean Corpuscular Volume 84.0 fL (80.0-94.0); Platelet Count 172 10^3/uL (130-400); Red Cell Dist. Width 16.3 % (11.5-14.5)
[2024-12-26 09:02] LABS: Blood Urea Nitrogen 31 mg/dl (9-20); Calcium 8.2 mg/dl (8.4-10.2); Carbon Dioxide 26 mmol/L (22-30); Chloride 102 mmol/L (98-107); Estimated Creatinine Clearance 83 ml/min; Glucose 160 mg/dl (70-99); Potassium 3.6 mmol/L (3.5-5.1); Sodium 136 mmol/L (135-145); eGFR > 60.00
[2024-12-26] MEDS: ULTRAM 50 MG PO ×2 (09:35→20:20)
[2024-12-26] MEDS: TYLENOL 1000 MG PO ×2 (09:35→20:19)
[2024-12-26] MEDS: LOVENOX 40 MG SC ×2 (09:35→20:21)
[2024-12-26] MEDS: LASIX 40 MG IV ×2 (09:36→16:45)
[2024-12-26] MEDS: PROSCAR 5 MG PO (09:37)
[2024-12-26] MEDS: FLOMAX 0.4 MG PO ×2 (09:37→20:21)
[2024-12-26] MEDS: THERAGRAN 1 TABLET PO (09:37)
[2024-12-26] MEDS: KCL 20 MEQ PO ×2 (09:38→20:19)
[2024-12-26 11:12] VITALS: BP 137/77
--- NOTE | 2024-12-26 12:50 | CM ---
Chart reviewed and patient is currently requiring IV ABX, patient may benefit from PT/OT evaluations.
Plan is to home with spouse when stable.
--- NOTE | 2024-12-26 13:09 | W.PN.ID1 ---
Date of Service
Date of Service: December 26, 2024
Today's Communication
Continue ceftriaxone and clinda.
Assessment / Plan
# Severe LLE cellulitis due to Group A streptococcus.
# Group A strep bacteremia, 1 of 2 sets)
# Leukocytosis with bandemia, improving
# Hx chronic BLE lymphedema
# Class III obesity
- Continue ceftriaxone 2g q24h.
- Continueclindamycin 900mg iv q8 short course as toxin inhibitor.
- Trend WBC/temps
- Omar-wrap compression and leg elevation
Chief Complaint
-: Cellulitis and Bacteremia
Subjective / Review of Systems
Leg is weeping
Vital Signs / Physical Exam
Vital Signs
Vital Signs
Temp Pulse Resp BP Pulse Ox
97.8 F 93 14 137/77 95
12/26/24 11:12 12/26/24 11:12 12/26/24 11:12 12/26/24 11:12 12/26/24 11:12
Physical Exam
Constitutional: No Acute Distress
Pulmonary: Clear
Gastrointestinal: Soft, Non Tender, Non Distended and Normal Bowel Sounds
Extremities: Edema (LLE>>RLE; LLE with serous drainage) and Erythema (LLE from foot to groin- erythema darker, warm)
Neurological: AO x 3
Objective Data
Lab Data
Lab Results
12/26/24 07:56
12/26/24 07:56
Estimated Creat Clear 83 ml/min 12/26/24 07:56
Lactic Acid 1.3 mmol/L (0.7-2.0) 12/24/24 13:38
Total Bilirubin 1.6 mg/dl (0.2-1.3) H 12/24/24 08:50
AST 27 U/L (17-59) 12/24/24 08:50
ALT 30 U/L (0-50) 12/24/24 08:50
Alkaline Phosphatase 67 U/L (38-126) 12/24/24 08:50
Most recent labs reviewed.
Micro Results:
12/25/24 11:20 Blood Culture - Preliminary
Blood/Venous No Growth in 24 hours- Final report to follow
12/24/24 08:50 Blood Culture - Preliminary
Blood/Venous Streptococcus pyogenes
Gram Stain - Final
12/24/24 09:50 Blood Culture - Preliminary
Blood/Venous No Growth in 48 hours- Final report to follow
12/24/24 16:07 MRSA Screen - Final
Nose No Methicillin Resistant Staphylococcus aureus isolated.
[2024-12-26 13:10] VITALS: BMI 43.1
[2024-12-26 15:19] VITALS: BP 116/71
--- NOTE | 2024-12-26 15:21 | W.PN.HOSP.TC ---
Today's Communication/Plan
-
IV antibiotics
Lasix
Compression therapy
Assessment / Plan
Assessment / Plan
74 y/o with sepsis , cellulitis LLE
Awake alert oriented
Cardiovascular system S1-S2 appreciated
Chest clear to auscultation
Abdomen soft and nontender
Bilateral edema 4+ redness in the left leg with small skin breaks with oozing fluid noted. Right leg small ulcerations , but no redess, Edema RLE better
# Streptococcus pyogenes sepsis secondary to left lower extremity cellulitis
Patient has chronic lymphedema he states that he was wrapping it but bilateral legs are extremely swollen
Omar bandages applied
But is changed to clindamycin and ceftriaxone
White cell count slightly better
Continue diuresis with IV Lasix 40 mg IV twice daily
Infectious disease consultation has positive blood cultures-appreciated
Repeat blood cultures ordered-negative
# Lactic acidosis-resolved
# Hypertension-hold antihypertensives-enalapril hydrochlorothiazide. Blood pressure stable
# Mild hyponatremia-follow
# Prostate disease-continue finasteride and Flomax
# Chronic back pain with multiple back surgeries-7 surgeries
# History of DVT and PE-DVT prophylaxis 40 mg of Lovenox twice daily given patient's BMI
# Obesity with a BMI of 43
# DVT prophylaxis-Lovenox
# CODE STATUS-full code
Discussed with nursing at bedside
Discussed with at bedside
Discussed about the importance of keeping the legs elevated and also lymphedema therapy and long-term
Part of this note was created using voice recognition system. Occasional wrong word or��sound alike� substitutions may have inadvertently occurred due to the inherent limitations of voice recognition software. If noted kindly bring it to my
attention for correction.
Anticipated Discharge: > 48 hours
Subjective/Interval History
-
Date of Service: December 26, 2024
Objective Data
-
Labs:
Laboratory Results
12/26/24
07:56
WBC 14.3 H
Hgb 13.0
Hct 38.9 L
Plt Count 172
Sodium 136
Potassium 3.6
Chloride 102
Carbon Dioxide 26
BUN 31 H
Creatinine 1.1
Glucose 160 H
Calcium 8.2 L
Vital Signs:
Vital Signs
Temp Pulse Resp BP Pulse Ox
98.0 F 91 16 116/71 94
12/26/24 15:19 12/26/24 15:19 12/26/24 15:19 12/26/24 15:19 12/26/24 15:19
I&O
12/25/24 12/26/24 12/27/24
06:59 06:59 06:59
Intake Total 960 / 960 1700 / 1700
Output Total 325 / 325 3000 / 3000
Balance 635 / 635 -1300 / -1300
[2024-12-26] MEDS: ROCEPHIN 2000 MG IV (16:11)
[2024-12-26] MEDS: STERILE WATER FOR INJECTION 20 ML IV (16:12)
--- NOTE | 2024-12-26 17:06 | CARDSERVLU ---
Echocardiogram with [facility] completed after protocol screening completed. Allergies verified.
Patent IV site: _R HAND____
IV site flushed with 0.9% NaCl pre and post administration.
Diluted bolus method utilized to enhance visualization of ventricular [place]in.
Total volume given: _4___ mL
Patient tolerated all procedures well without complications.
[2024-12-26 19:30] VITALS: BP 135/72
[2024-12-26] MEDS: SENOKOT 17.2 MG PO (20:19)
[2024-12-26 23:52] VITALS: BP 127/70
[2024-12-27 03:17] VITALS: BP 132/70
[2024-12-27 06:00] VITALS: BMI 42.7
[2024-12-27 07:08] VITALS: BP 113/72
[2024-12-27 08:23] LABS: Hematocrit 40.4 % (39.0-52.0); Hemoglobin 13.6 g/dL (13.0-18.0); Mean Corp Hgb Conc. 33.7 g/dL (33.0-37.0); Mean Corpuscular Volume 84.3 fL (80.0-94.0); Platelet Count 200 10^3/uL (130-400); Red Cell Dist. Width 16.3 % (11.5-14.5)
[2024-12-27] MEDS: LASIX 40 MG IV ×2 (08:34→15:51)
[2024-12-27] MEDS: KCL 20 MEQ PO ×2 (08:35→12:13)
[2024-12-27] MEDS: CLEOCIN 50 IV ×3 (08:36→22:58)
[2024-12-27] MEDS: FLOMAX 0.4 MG PO ×2 (08:36→20:58)
[2024-12-27] MEDS: THERAGRAN 1 TABLET PO (08:36)
[2024-12-27] MEDS: PROSCAR 5 MG PO (08:36)
[2024-12-27] MEDS: LOVENOX 40 MG SC (08:37)
[2024-12-27] MEDS: TYLENOL 1000 MG PO ×2 (08:40→20:59)
[2024-12-27] MEDS: ULTRAM 50 MG PO ×2 (08:40→20:58)
[2024-12-27 09:23] LABS: Blood Urea Nitrogen 31 mg/dl (9-20); Calcium 8.3 mg/dl (8.4-10.2); Carbon Dioxide 28 mmol/L (22-30); Chloride 101 mmol/L (98-107); Estimated Creatinine Clearance 101 ml/min; Glucose 100 mg/dl (70-99); Potassium 3.7 mmol/L (3.5-5.1); Sodium 136 mmol/L (135-145); eGFR > 60.00
--- NOTE | 2024-12-27 11:12 | W.PN.HOSP.TC ---
Today's Communication/Plan
-
see plan
Assessment / Plan
Assessment / Plan
Mr. Shaheen Ryan is a 74 yo man with hx obesity, DVT, chronic back pain, HTN, lymphedema, venous insufficiency presents to the ER 12/24 with pain and swelling left leg admitted for LLE severe cellulitis found ot have Strep pyogenes bacteremia.
Streptococcus pyogenes Bacteremia
Severe Left Lower extremity cellulitis
Sepsis / above
-appreciate ID
-IV Ceftriaxone, Clindamycin
-repeat blood cultures from 12/25 without growth
-continue diuresis as below
-LLE elevation
Bilateral LE swelling
Lymphedema
-continue IV Lasix - consider adding lasix on DC
# Lactic acidosis-resolved
# Hypertension-hold antihypertensives-enalapril hydrochlorothiazide. Blood pressure stable
# Mild hyponatremia-follow
# Prostate disease-continue finasteride and Flomax
# Chronic back pain with multiple back surgeries-7 surgeries
# History of DVT and PE-DVT prophylaxis 40 mg of Lovenox twice daily given patient's BMI
# Obesity with a BMI of 43
# DVT prophylaxis-Lovenox
# CODE STATUS-full code
Discussed with nursing at bedside
Discussed with at bedside
Anticipated Discharge: 24 - 48 hours
Subjective/Interval History
-
Date of Service: December 27, 2024
leg remains very red and swollen, it is not tender
Objective Data
-
Labs:
Laboratory Results
12/27/24
07:58
WBC 9.5
Hgb 13.6
Hct 40.4
Plt Count 200
Sodium 136
Potassium 3.7
Chloride 101
Carbon Dioxide 28
BUN 31 H
Creatinine 0.9
Glucose 100 H
Calcium 8.3 L
Vital Signs:
Vital Signs
Temp Pulse Resp BP Pulse Ox
98.3 F 90 20 113/72 97
12/27/24 07:08 12/27/24 08:34 12/27/24 07:08 12/27/24 08:34 12/27/24 07:08
I&O
12/26/24 12/27/24 12/28/24
06:59 06:59 06:59
Intake Total 1700 / 1700 1500 / 1500
Output Total 3000 / 3000 1775 / 1775
Balance -1300 / -1300 -275 / -275
Review of Systems
-
History Source: Patient
All other systems: Reviewed and negative
Physical Exam
-
General: No Apparent Distress
HEENT: PERRLA
Respiratory: Clear to Auscultation; Negative Wheezes
Cardiac: Regular Rhythm and S1/S2
GI: Soft and Nontender
Musculoskeletal: Other (LLE with significant redness and swelling; not significantly tender to touch )
Skin: Warm and Dry; Negative Rash
Neuro: AO x 3
Psych: Calm
Data Reviewed
-
Diagnostic Radiology: Report Reviewed by me
Labs: Labs Reviewed by me
[2024-12-27 11:21] VITALS: BP 135/67
--- NOTE | 2024-12-27 11:21 | W.PN.ID1 ---
Date of Service
Date of Service: December 27, 2024
Today's Communication
Continue ceftriaxone and clindamycin.
Assessment / Plan
# Severe LLE cellulitis due to Group A streptococcus, improving
# Group A strep bacteremia, (1 of 2 sets)
# Leukocytosis resolved
# Hx chronic BLE lymphedema
# Class III obesity
- Continue ceftriaxone 2g q24h.
- Continue clindamycin 900mg iv q8 short course as toxin inhibitor.
- Omar-wrap compression as tolerated
- leg elevation
Chief Complaint
-: Cellulitis and Bacteremia
Subjective / Review of Systems
Leg is feeling better.
Vital Signs / Physical Exam
Vital Signs
Vital Signs
Temp Pulse Resp BP Pulse Ox
98.3 F 90 20 113/72 97
12/27/24 07:08 12/27/24 08:34 12/27/24 07:08 12/27/24 08:34 12/27/24 07:08
Physical Exam
Constitutional: No Acute Distress
Pulmonary: Clear
Gastrointestinal: Soft, Non Tender, Non Distended and Normal Bowel Sounds
Extremities: Edema (LLE>>RLE; LLE with serous drainage) and Erythema (LLE from ankle to groin continues to decrease; decreasing serous drainage)
Neurological: AO x 3
Objective Data
Lab Data
Lab Results
12/27/24 07:58
12/27/24 07:58
Estimated Creat Clear 101 ml/min 12/27/24 07:58
Lactic Acid 1.3 mmol/L (0.7-2.0) 12/24/24 13:38
Total Bilirubin 1.6 mg/dl (0.2-1.3) H 12/24/24 08:50
AST 27 U/L (17-59) 12/24/24 08:50
ALT 30 U/L (0-50) 12/24/24 08:50
Alkaline Phosphatase 67 U/L (38-126) 12/24/24 08:50
Most recent labs reviewed.
Micro Results:
12/24/24 08:50 Blood Culture - Final
Blood/Venous Streptococcus pyogenes
Gram Stain - Final
12/24/24 09:50 Blood Culture - Preliminary
Blood/Venous No Growth in 72 hours- Final report to follow
12/25/24 11:20 Blood Culture - Preliminary
Blood/Venous No Growth in 24 hours- Final report to follow
12/24/24 16:07 MRSA Screen - Final
Nose No Methicillin Resistant Staphylococcus aureus isolated.
--- NOTE | 2024-12-27 12:26 | WOUNDNOTE ---
[facility] RN NOTE: Reviewed chart and met with patient. Per chart review, Dr. Mcclure has recommended compression as tolerated. Wound care orders were ordered by Hospitalist at on 12/24. At time of assessment patient said he would elevate legs but would like
to leave legs open to air. No open wound noted, but serous drainage noted from multiple draining areasHe is also declining compression at this time. He reports following at a lymphedema clinic at [place] and that compression has been ordered for
him. RN May given update. Will sign off.
--- NOTE | 2024-12-27 12:41 | WOUNDNOTE ---
LEFT LOWER LEG
--- NOTE | 2024-12-27 14:53 | CM ---
Home when stable.
Plan; Home no needs.
[2024-12-27 15:36] VITALS: BP 134/39
[2024-12-27] MEDS: STERILE WATER FOR INJECTION 20 ML IV (15:50)
[2024-12-27] MEDS: ROCEPHIN 2000 MG IV (15:50)
[2024-12-27 20:35] VITALS: BP 177/87
[2024-12-27] MEDS: SENOKOT PO (20:58)
[2024-12-27] MEDS: LOVENOX SC ×2 (20:58→21:01)
[2024-12-27 23:57] VITALS: BP 129/75
[2024-12-28 03:20] VITALS: BP 119/66
[2024-12-28 06:00] VITALS: BMI 42.0
[2024-12-28] MEDS: ULTRAM 50 MG PO (08:18)
[2024-12-28] MEDS: THERAGRAN 1 TABLET PO (08:18)
[2024-12-28] MEDS: PROSCAR 5 MG PO (08:18)
[2024-12-28] MEDS: FLOMAX 0.4 MG PO (08:18)
[2024-12-28] MEDS: LASIX IV ×2 (08:19→08:22)
[2024-12-28] MEDS: TYLENOL 1000 MG PO (08:19)
[2024-12-28] MEDS: CLEOCIN 50 IV (08:20)
[2024-12-28] MEDS: LOVENOX 40 MG SC (08:23)
[2024-12-28 08:25] VITALS: BP 145/74
--- NOTE | 2024-12-28 11:05 | W.PN.ID1 ---
Date of Service
Date of Service: December 28, 2024
Today's Communication
Can transition ceftriaxone 2g q24h to high dose amoxicillin 1000mg po q8 x 10 more days.
Assessment / Plan
# Severe LLE cellulitis due to Group A streptococcus, improving
# Group A strep bacteremia, (1 of 2 sets)
# Leukocytosis resolved
# Hx chronic BLE lymphedema
# Class III obesity
- Completed 3d clindamycin 900mg iv q8 as toxin inhibitor.
- Can transition ceftriaxone 2g q24h to high dose amoxicillin 1000mg po q8 x 10 more days.
- Omar-wrap compression
- leg elevation
Chief Complaint
-: Cellulitis and Bacteremia
Subjective / Review of Systems
LEg much improved. Will like to go home.
Vital Signs / Physical Exam
Vital Signs
Vital Signs
Temp Pulse Resp BP Pulse Ox
98.3 F 99 18 145/74 96
12/28/24 08:25 12/28/24 08:25 12/28/24 08:25 12/28/24 08:25 12/28/24 08:25
Physical Exam
Constitutional: No Acute Distress
Pulmonary: Clear
Gastrointestinal: Soft, Non Tender, Non Distended and Normal Bowel Sounds
Extremities: Edema (LLE decreased, no drainage today) and Erythema (LLE erythema decreasing)
Neurological: AO x 3
Objective Data
Lab Data
Lab Results
12/27/24 07:58
Estimated Creat Clear Cancelled 12/28/24 08:15
Lactic Acid 1.3 mmol/L (0.7-2.0) 12/24/24 13:38
Total Bilirubin 1.6 mg/dl (0.2-1.3) H 12/24/24 08:50
AST 27 U/L (17-59) 12/24/24 08:50
ALT 30 U/L (0-50) 12/24/24 08:50
Alkaline Phosphatase 67 U/L (38-126) 12/24/24 08:50
Most recent labs reviewed.
Micro Results:
12/24/24 09:50 Blood Culture - Preliminary
Blood/Venous No Growth in 4 days- Final report to follow
12/25/24 11:20 Blood Culture - Preliminary
Blood/Venous No Growth in 48 hours- Final report to follow
12/24/24 08:50 Blood Culture - Final
Blood/Venous Streptococcus pyogenes
Gram Stain - Final
12/24/24 16:07 MRSA Screen - Final
Nose No Methicillin Resistant Staphylococcus aureus isolated.
Care Review
Plan reviewed with: Physician (Dr. Vicente)
[2024-12-28 11:59] LABS: Blood Urea Nitrogen 24 mg/dl (9-20); Calcium 8.3 mg/dl (8.4-10.2); Carbon Dioxide 32 mmol/L (22-30); Chloride 98 mmol/L (98-107); Estimated Creatinine Clearance 100 ml/min; Glucose 99 mg/dl (70-99); Magnesium 2.3 mg/dl (1.6-2.3); Potassium 3.9 mmol/L (3.5-5.1); Sodium 136 mmol/L (135-145); eGFR > 60.00
[2024-12-28 12:16] VITALS: BP 122/75
--- NOTE | 2024-12-28 12:20 | W.PN.HOSP.TC ---
Today's Communication/Plan
-
OK for DC today
Assessment / Plan
Assessment / Plan
Mr. Shaheen Ryan is a 74 yo man with hx obesity, DVT, chronic back pain, HTN, lymphedema, venous insufficiency presents to the ER 12/24 with pain and swelling left leg admitted for LLE severe cellulitis found ot have Strep pyogenes bacteremia.
Streptococcus pyogenes Bacteremia
Severe Left Lower extremity cellulitis
Sepsis / above
-appreciate ID
-IV Ceftriaxone, s/p course of Clindamycin. transition to oral Amoxicillin x 10 more days
-repeat blood cultures from 12/25 without growth
-continue diuresis as below
-LLE elevation
Bilateral LE swelling
Lymphedema
-s/p IV Lasix
-patient is on oral Lasix at home
# Lactic acidosis-resolved
# Hypertension- resume enalapril hydrochlorothiazide. Blood pressure rising
# Mild hyponatremia-follow
# Prostate disease-continue finasteride and Flomax
# Chronic back pain with multiple back surgeries-7 surgeries
# History of DVT and PE-DVT prophylaxis 40 mg of Lovenox twice daily given patient's BMI
# Obesity with a BMI of 43
# DVT prophylaxis-Lovenox
# CODE STATUS-full code
Discussed with nursing at bedside
Discussed with at bedside
Anticipated Discharge: Today
Subjective/Interval History
-
Date of Service: December 28, 2024
overall feeling better
wants to go home
Objective Data
-
Labs:
Laboratory Results
12/28/24 12/28/24
08:15 10:45
Sodium Cancelled 136
Potassium Cancelled 3.9
Chloride Cancelled 98
Carbon Dioxide Cancelled 32 H
BUN Cancelled 24 H
Creatinine Cancelled 0.9
Glucose Cancelled 99
Calcium Cancelled 8.3 L
Vital Signs:
Vital Signs
Temp Pulse Resp BP Pulse Ox
97.9 F 77 18 122/75 98
12/28/24 12:16 12/28/24 12:16 12/28/24 12:16 12/28/24 12:16 12/28/24 12:16
I&O
12/27/24 12/28/24 12/29/24
06:59 06:59 06:59
Intake Total 1500 / 1500 860 / 860 480 / 480
Output Total 1775 / 1775 1380 / 1380 300 / 300
Balance -275 / -275 -520 / -520 180 / 180
Review of Systems
-
History Source: Patient
All other systems: Reviewed and negative
Physical Exam
-
General: No Apparent Distress
HEENT: PERRLA
Respiratory: Clear to Auscultation; Negative Wheezes
Cardiac: Regular Rhythm and S1/S2
GI: Soft and Nontender
Musculoskeletal: Other (LLE with significant redness and swelling; not significantly tender to touch )
Skin: Warm and Dry; Negative Rash
Neuro: AO x 3
Psych: Calm
Data Reviewed
-
Diagnostic Radiology: Report Reviewed by me
Labs: Labs Reviewed by me
--- NOTE | 2024-12-28 12:27 | W.DS.TRANS ---
DC Summary - [facility]
-
Discharge Instructions:
Discharge Diagnosis/Procedures Left leg cellulitis, lymphedema
Diet Low Sodium
Activity As tolerated
Additional Activity left leg elevation
Driving Restrictions As prior to admission
Bathing Restrictions None
Specialty Instructions Weigh Daily
Instructions:
Stand-Alone Forms:
Changes to Home Medications: Yes
Discharge Medications:
DC Medications w/original date entered in [facility]
tamsulosin 0.4 mg capsule 0.4 mg PO BID Urinary issue 01/08/18
tizanidine 2 mg tablet 2 mg PO TIDPRN PRN muscle spasms 07/25/21
tramadol 50 mg tablet 50 mg PO BIDPRN PRN moderate pain 07/25/21
enalapril 5 mg-hydrochlorothiazide 12.5 mg tablet 1 tab PO DAILY Blood Pressure 02/26/23
omega 5-mzp-fht-fish oil 1,200 mg (144 mg-216 mg) capsule (Fish Oil) 1 cap PO DAILY Supplement 02/26/23
therapeutic multivitamin 1 tab PO DAILY Supplement 12/17/23
finasteride 5 mg tablet 5 mg PO DAILY Urinary Issue 12/24/24
amoxicillin 500 mg capsule 1,000 mg (2 x 500 mg) PO Q8H #30 caps 12/28/24
furosemide 40 mg tablet (Lasix) 40 mg PO PRN PRN swelling 12/28/24
Home Medication Changes
addition of Amoxicillin
Pending Results: No
--- NOTE | 2024-12-28 13:05 | CM ---
Patient is for discharge to home today with [facility], spouse to transport patient.
Plan; Home with [facility].
--- NOTE | 2024-12-28 13:33 | VNURNOTE ---
Home Health Liaison spoke with patient to discuss [facility] nurse/therapy, visits, schedule and homebound status. Patient is agreeable and understands that visits at home will be 2-3 x per week to assess and teach medical management. He confirms he
has a scale at home and spouse can assist with wrapping LEs. Patient is aware that [facility] will contact them for start of care in 1-2 days after discharge from .
[facility] referral completed in [facility].
[2024-12-28] MEDS: STERILE WATER FOR INJECTION 20 ML IV (14:00)
[2024-12-28] MEDS: ROCEPHIN 2000 MG IV (14:00)
[2024-12-28 14:45] VITALS: BP 136/73
--- NOTE | 2024-12-28 14:47 | W.DCSUMMARY ---
Discharge Summary
Discharge Data
Date of Admission: 12/24/24
Date of Discharge: 12/28/24
-
Pending Results: No
Hospital Course
Discharging Physician : Dr. Sahra Vicente
Disposition : Home with Home Health
Primary care physician : Dr. Jalen Booker
Principal Discharge diagnosis : Left lower extremity cellulitis
Hospital Course :
Mr. Shaheen Ryan is a 74 yo man with hx obesity, DVT, chronic back pain, HTN, lymphedema, venous insufficiency presents to the ER 12/24 with pain and swelling left leg.
Triage vitals with pulse 105, RR up to 26. Labs with WBC 23.7, lactate 2.4. He was admitted for severe sepsis / LLE cellulitis. Blood cultures returned positive for Strep pyogenes. ID was consulted. He was treated with IV Ceftriaxone and 3
days of IV Clindamycin. Patient also received IV lasix for LE swelling. He is clinically improved. Leukocytosis resolved, has remained afebrile and wishes to go home. He is prescribed Amoxicillin 1G q 8 hours x 10 additional days.
Patient is told to take Lasix daily at home for swelling and to continue LE elevation. He will follow up closely with PCP.
Time spent on discharge was 32 minutes.
Important imaging findings :
Procedure findings :
Discharge Plan
-
Patient Disposition: Home (Routine Discharge)
Discharge Diagnosis/Procedures: Left leg cellulitis, lymphedema
Diet: Low Sodium
Activity: As tolerated
Additional Activity: left leg elevation
Driving Restrictions: As prior to admission
Bathing Restrictions: None
Specialty Instructions: Weigh Daily- Call MD for wt gain/loss 3 lbs overnight/5 lbs in 1 week
Referrals:
Jalen Booker MD [Family Provider, Family Practice] - in less than 1 week
Additional Discharge Medication Instructions: Take home Lasix daily to help decrease swelling in the legs
You have 10 more days of antibiotics
Prescriptions:
New
amoxicillin 500 mg capsule
1,000 mg PO Q8H Qty: 30 0RF
amoxicillin 500 mg capsule
1,000 mg PO Q8H Qty: 30 0RF
Rx Instructions:
continue with prior prescription for total 10 days
Continued
tamsulosin 0.4 MG capsule
0.4 mg PO BID
tizanidine 2 MG tablet
2 mg PO TIDPRN PRN (Reason: muscle spasms)
tramadol 50 MG tablet
50 mg PO BIDPRN PRN (Reason: moderate pain)
enalapril-hydrochlorothiazide 5-12.5 mg tablet
1 tab PO DAILY
omega 8-mpi-nqa-fish oil [Fish Oil] 1,200 (144-216) mg Capsule
1 cap PO DAILY
therapeutic multivitamin Tablet
1 tab PO DAILY
finasteride 5 mg Tablet
5 mg PO DAILY
furosemide [Lasix] 40 mg Tablet
40 mg PO PRN PRN (Reason: swelling)
Discharge Orders:
Discharge Patient (As Directed); Ordered 12/28/24
Ordered By: Sahra Vicente
Discharge Date and Time
Print Language: TRISTANIAN
== END 2024-12-28 15:43 | disposition home health service (06) | DRG 872 ==
LOC: 4 WEST ACU 13:19
PROVIDERS: ADMITTING PHYSICIAN Hospitalist; ATTENDING PHYSICIAN Student in an Organized Health Care Education/Training Program; CONSULT PHYSICIAN Internal Medicine Infectious Disease; EMERGENCY PHYSICIAN Emergency Medicine; FAMILY PHYSICIAN Family Medicine
DX: A40.0 Sepsis due to streptococcus, group A (principal); L03.116 Cellulitis of left lower limb; E87.20 Acidosis, unspecified; E87.1 Hypo-osmolality and hyponatremia; Z68.41 Body mass index [BMI] 40.0-44.9, adult; I89.0 Lymphedema, not elsewhere classified; Z86.718 Personal history of other venous thrombosis and embolism; G89.29 Other chronic pain; E66.9 Obesity, unspecified; I10 Essential (primary) hypertension; I87.2 Venous insufficiency (chronic) (peripheral); R65.20 Severe sepsis without septic shock; Z98.1 Arthrodesis status; Z82.49 Family history of ischemic heart disease and other diseases of the circulatory system; Z80.0 Family history of malignant neoplasm of digestive organs; N40.0 Benign prostatic hyperplasia without lower urinary tract symptoms
CPT/HCPCS: 80048; 80053; 81003; 81015; 83605; 83735; 85025; 85027; 86803; 87040; 87070; 87154; 87205; 93306; 93971; 96361; 96374; 99284; 99406; Q9950

== ENCOUNTER 2025-01-08 14:41 | Inpatient (IN) | payer MEDICARE, OTHER, SELFPAY ==
[2025-01-08] VITALS (9 sets, daily range): BP systolic 110–175; BP diastolic 52–88; BMI 41.9; BMI 43.9
--- NOTE | 2025-01-08 11:38 | ED.GENMED ---
History of Present Illness
General
Chief Complaint: Skin Problem
Source: patient, records and spouse
Exam Limitations: none
Time Seen by Provider: 01/08/25 11:23
History of Present Illness
History of Present Illness:
74yoM with a history of hypertension, chronic back pain, lymphedema, and prior provoked DVT 5 years ago presenting with his for evaluation of left leg pain and swelling. Patient was recently hospitalized from 12/24/24-12/28/24 for L leg
cellulitis. Blood cultures grew out strep pyogenes. He was discharged with a 10-day prescription for amoxicillin which she completed last night. He saw his visiting nurse 2 days ago with concern for worsening infection and PCP prescribed Keflex
which he started today. He is here today because his swelling and pain has been worsening. He also has wounds on his lower leg which have now opened and started draining. He had a fever of 100.5 last night. He denies any shortness of breath
Past History
Past History
ED Past Medical History: HTN and Other (Chronic neck/back pain, DVT/PE, Cellulitis, )
ED Past Surgical History: Orthopedic (Neck fusion, Lumbar laminectomy T12, L1, L2, L3 fusion with rods and discs, Decompression herniate disc. )
Social History
Tobacco: Non-smoker
Alcohol: None
Drug: None
Personal:
Living: with family
Employment: Retired
Family History
Family History: Hypertension and CAD
Phy Exam
General Physical Exam
General Presentation: well appearing and no apparent distress
General Skin: warm and dry
General Habitus: normal
General Mental: alert
ENT Exam
ENT Exam: normocephalic
Pulmonary Exam
Pulmonary Exam: lungs clear, no respiratory distress, no rales, no crackles, no rhonchi and no wheezing
Neurological Exam
Neurological Exam: alert
Ju Coma Scale
Eye Opening: Spontaneous
Verbal Response: Oriented
Motor Response: Obeys Commands
GCS Total Score: 15
Skin Exam
Skin Exam: warm/dry and other (Erythema and warmth noted to L anterior lower leg extending to the thigh. There are several open wounds that are draining serous fluid. +Pitting edema to bilateral lower extremities. No crepitus or fluctuance.)
Psychiatric Exam
Psychiatric Exam: normal mood/affect
Course
Orders/Labs/Results
Orders:
Orders
01/08/25 11:29
Complete Blood Count/With Diff Urgent
Comprehensive Metabolic Panel Urgent
Lactic Acid Urgent
NT-proBNP Urgent
Blood Culture Urgent
SHERLYN Source: Blood/Venous
Specimen Description:
01/08/25 11:37
Venous Doppler Lwr Ext Left [US Periph Venous LOWER Ext LT] Urgent
Comment:
Reason For Exam: L leg swelling, pain
01/08/25 11:46
Blood Culture Urgent
SHERLYN Source: Blood/Venous
Specimen Description:
01/08/25 13:40
CeFAZolin 2 GRAM [Ancef] 2 grams in 10 ml IV NOW
01/08/25 14:05
Admit/Transfer Patient As Directed
Co-Sign Provider:
Level of Care: Inpatient admission
Assign to:: Medical/Surgical
Physician / Group: Kathryn/hospitalist
Diagnosis: LLE cellulitis
Reason for Hospitalization: LLE cellulitis
Expected length of stay greater than two midnights?: Yes
ELOS- Estimated Length of Stay in days: 3
I certify the patient meets the requirements for IP care: Yes
01/08/25 14:06
PRN Pain Medication Management As Directed
May give lesser potent ordered pain med per pt: Yes
preference::
Protocol:: Medication orders for pain may be administered in a
manner that supports deferring to patient preference
when the pt is:
- Requesting an ordered lesser potent pain medication.
Least to most potent pain medications are defined
as: acetaminophen < NSAID < tramadol < opioids
(morphine, oxycodone, hydromorphone).
- Requesting a lesser dose of the same medication IF
ORDERED.
- Requesting a less intrusive route of administration
if both routes are prescribed by the provider (PO <
IV).
01/08/25 14:08
Code Status As Directed
Resuscitation Status: Full Code
Abnormal Lab Results
01/08/25
11:29
RBC 4.13 L 10^6/uL
(4.70-6.10)
Hgb 11.6 L g/dL
(13.0-18.0)
Hct 35.3 L %
(39.0-52.0)
MCHC 32.9 L g/dL
(33.0-37.0)
RDW 16.2 H %
(11.5-14.5)
Absolute Lymphs (auto) 0.8 L 10^3/uL
(1.2-3.4)
Absolute Monos (auto) 0.9 H 10^3/uL
(0.1-0.6)
Lymphocytes % 10.7 L %
(20.5-51.1)
Monocytes % 11.7 H %
(1.7-9.3)
Glucose 104 H mg/dl
(70-99)
Albumin 3.4 L g/dl
(3.5-5.0)
01/08/25 11:29
01/08/25 11:29
Vital Signs
Initial and Last Documented VS:
Initial Vital Signs
Temp Pulse Resp BP Pulse Ox
98.5 F 92 16 130/69 95
01/08/25 10:38 01/08/25 10:38 01/08/25 10:38 01/08/25 10:38 01/08/25 10:38
Last Documented Vital Signs
Temp Pulse Resp BP Pulse Ox
98.5 F 104 21 128/87 97
01/08/25 10:38 01/08/25 13:45 01/08/25 14:00 01/08/25 14:00 01/08/25 14:00
MDM/Problems Addressed
Differential Diagnosis Includes:
74yoM here with L leg swelling/redness. Recently hospitalized for cellulitis/bacteremia. Finished amoxil yesterday and started on Keflex today. Temp 100.5 at home last night. He is afebrile on arrival with stable vitals. There is evidence of
cellulitis on exam with draining wounds. Lymphedema noted bilaterally. Differential diagnosis includes but is not limited to: cellulitis, venous stasis changes, DVT
Initial ED plan: Check CBC, CMP, lactate, blood cultures, and venous duplex.
*Pulse Oximetry
SaO2: 95
Oxygen Mode of Delivery: Room air
Patient hypoxic: no (95%)
*Critical Care Note
Total Time (30-74mins, 75-104mins- exclusive of procedures): Not Applicable
Update Note
Update Note:
Labs reassuring including normal white count and lactate. Venous duplex negative for DVT. Will admit for failure of outpatient antibiotics. IV Ancef ordered.
ED Attending Note
-
Portions of this chart may have been created with voice recognition software.� Occasional wrong word or��sound alike� substitutions may have occurred due to the inherent limitations of voice recognition software.
Discharge Plan
Departure
Patient Disposition: Admit
Date of Disposition: 01/08/25
Time of Disposition: 13:42
Presentation/result/management discussed w/ accepting MD/DO: Hospitalist
Discharge Problem:
Cellulitis of left lower extremity
Interventions
Interventions:
*Risk Screen - Suicide Last Done: 01/08/25 10:40
*General Assessment Last Done: 01/08/25 11:18
*Neglect/Abuse Screening Last Done: 01/08/25 10:40
*ED- Fall Risk Assessment Last Done: 01/08/25 11:18
*ED COVID-19 Vaccine History Last Done: 01/08/25 11:18
*Nursing Disposition Last Done: 01/08/25 15:28
ED-Skin Assessment Last Done: 01/08/25 12:42
[2025-01-08 11:42] LABS: Hematocrit 35.3 % (39.0-52.0); Hemoglobin 11.6 g/dL (13.0-18.0); Mean Corp Hgb Conc. 32.9 g/dL (33.0-37.0); Mean Corpuscular Volume 85.5 fL (80.0-94.0); Nucleated Red Blood Cells % 0 % (-); Platelet Count 288 10^3/uL (130-400); Red Cell Dist. Width 16.2 % (11.5-14.5)
[2025-01-08 11:57] LABS: ALT (SGPT) 50 U/L (0-50); AST (SGOT) 32 U/L (17-59); Albumin 3.4 g/dl (3.5-5.0); Alkaline Phosphatase 90 U/L (38-126); Blood Urea Nitrogen 13 mg/dl (9-20); Calcium 8.5 mg/dl (8.4-10.2); Carbon Dioxide 28 mmol/L (22-30); Chloride 104 mmol/L (98-107); Estimated Creatinine Clearance > 125 ml/min; Glucose 104 mg/dl (70-99); Potassium 4.0 mmol/L (3.5-5.1); Sodium 135 mmol/L (135-145); Total Protein 7.3 g/dl (6.3-8.2); eGFR > 60.00
--- NOTE | 2025-01-08 13:45 | HPS.HSE ---
Family Physician
-
Family Physician: Jalen Booker
Chief Complaint
-
LLE pain and swelling
History of Present Illness
HPI: 74 yo M with PMH hypertension, chronic back pain, BL lymphedema, and prior provoked DVT 5 years ago; p/w left leg pain and swelling.
Patient was recently hospitalized from 12/24/24 - 12/28/24 for L leg cellulitis with strep pyogenes bacteremia. He was discharged with a 10-day prescription of amoxicillin which he completed the night [employer].
He saw his visiting nurse 2 days [employer]PER[employer] with concern for worsening infection and his PCP prescribed Keflex which he started on DOA.
He presented with LLE swelling and pain which have become worse. He also has wounds on his lower leg which have now started to drain. He c/o fever of 100.5 the night [employer]PER[employer].
He denies to CP, shortness of breath or other symptoms.
Medical History
Past Medical History
Past Medical History: Reports Other
Additional Past Medical History:
Chronic back pain, pulmonary embolism, history of DVT, hypertension, enlarged prostate, cervical stenosis status post surgery,
Past Surgical History: Reports Other
Additional Past Surgical History:
Neck fusion, lumbar laminectomy, L1-L2-L3 fusion with rods and disks, decompression of the herniated disc, sinus surgery
Social History
Tobacco: Non-smoker
Alcohol: None
Drug: None
Personal:
Living: With Family
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
Family History
Family History: Cancer (gastric cancer father) and Other (chf mom)
Allergies / Home Medications
Allergies reflects when Allergies were last updated in [facility].
Home Medications with original date entered in [facility]
Allergy/Medication List:
Allergies
Allergy/AdvReac Type Severity Reaction Status Date / Time
No Known Allergies Allergy Verified 12/17/23 05:00
Home Medications
tamsulosin 0.4 mg capsule 0.4 mg PO BID Urinary issue 01/08/18
tizanidine 2 mg tablet 2 mg PO TIDPRN PRN muscle spasms 07/25/21
tramadol 50 mg tablet 50 mg PO BIDPRN PRN moderate pain 07/25/21
enalapril 5 mg-hydrochlorothiazide 12.5 mg tablet 1 tab PO DAILY Blood Pressure 02/26/23
omega 8-hod-fen-fish oil 1,200 mg (144 mg-216 mg) capsule (Fish Oil) 1 cap PO DAILY Supplement 02/26/23
therapeutic multivitamin 1 tab PO DAILY Supplement 12/17/23
finasteride 5 mg tablet 5 mg PO DAILY Urinary Issue 12/24/24
amoxicillin 500 mg capsule 1,000 mg (2 x 500 mg) PO Q8H #60 caps 12/28/24
furosemide 40 mg tablet (Lasix) 40 mg PO PRN PRN swelling 12/28/24
Review of Systems
-
Constitutional: Reports See HPI and Fever
Skin: Reports See HPI and Rash
Physical Exam
Vital Signs
Vital Signs
Temp Pulse Resp BP Pulse Ox
36.9 C 88 22 145/52 96
01/08/25 10:38 01/08/25 12:45 01/08/25 12:45 01/08/25 12:40 01/08/25 12:45
Physical Exam
General: Well Developed, Well Nourished, No Apparent Distress, Comfortable, Conversant and Morbidly Obese
HEENT: NormoCephalic and Anicteric
Respiratory: Clear and Non Labored Respirations; No Accessory Resp Muscle Use
Cardiac: S1/S2 and Regular Rhythm
GI: Soft, Non Tender, Non Distended and Normal Bowel Sounds
Musculoskeletal: Edema, Left Lower Extremity and Edema, Right Lower Extremity
Skin: Other (Left leg with oozing skin lesion)
Neuro: Awake, Alert, Oriented and AO x 3
Psych: Calm and Intact Judgment/Insight
Laboratory Results
-
01/08/25 11:29
01/08/25 11:29
Laboratory Results
Lactic Acid 1.1 mmol/L (0.7-2.0) 01/08/25 11:29
Total Bilirubin 0.9 mg/dl (0.2-1.3) 01/08/25 11:29
AST 32 U/L (17-59) 01/08/25 11:29
ALT 50 U/L (0-50) 01/08/25 11:29
Alkaline Phosphatase 90 U/L (38-126) 01/08/25 11:29
Data Reviewed
-
Ultrasound: Report Reviewed by me
Lab Data: Labs Reviewed by me
Impression/Plan
-
HPI: 74 yo M with PMH hypertension, chronic back pain, BL lymphedema, and prior provoked DVT 5 years ago; p/w left leg pain and swelling.
Patient was recently hospitalized from 12/24/24 - 12/28/24 for L leg cellulitis with strep pyogenes bacteremia. He was discharged with a 10-day prescription of amoxicillin which he completed the night [employer].
He saw his visiting nurse 2 days [employer] with concern for worsening infection and his PCP prescribed Keflex which he started on DOA.
He presented with LLE swelling and pain which have become worse. He also has wounds on his lower leg which have now started to drain. He c/o fever of 100.5 the night [employer].
He denies to CP, shortness of breath or other symptoms.
A/P:
# Recurrent LLE cellulitis
# Recent Streptococcus pyogenes Bacteremia
# Chronic BL lymphedema
LLE US negative for DVT
follow blood cultures
cont Abx Ancef, add vancomycin
Wound care CS
consider ID CS if not improving
Other medical conditions:
# Hypertension
cont home enalapril hydrochlorothiazide with hold parameter
# Prostate disease
continue finasteride and Flomax
# Chronic back pain with multiple back surgeries-7 surgeries
# History of DVT and PE
# Obesity with a BMI of 42
DVT prophylaxis-Lovenox BID given patient's BMI
CODE STATUS-full code
[2025-01-08] MEDS: ANCEF 10 IV ×2 (13:49→21:12)
[2025-01-08] MEDS: VANCOCIN 200 IV ×2 (17:52→23:18)
--- NOTE | 2025-01-08 19:36 | PHA.VAN.IN ---
Assessment
- Assessment
Renal Function: Appears similar to baseline (SCr 0.7, baseline appears to be 0.9-1.0)
Maximum Temperature: 98.5
Minimum Temperature: 98.1
Concomitant Antimicrobials: cefazolin
Plan
- Plan
Initial / Loading Dose: vanc 1000 mg IV q6h x 4 doses
Maintenance Regimen: to be determined after loading dose regimen
Monitoring: trough 01/09 530 (prior to 3rd dose)
Divided load IV vancoimycin dosing strategy for obese patient per Annals of Pharmacotherapy. 2015 Dec; (49(5):861-8.
vancomycin 1000mg IV q6h x 4 doses with level to be drawn prior to 3rd dose to assess accumulation. Once in target range, traditional dosing strategies to be used.
Pharmacokinetics Vancomycin I
- -
Patient Age: 74
Patient Sex: Male
Vancomycin Day #: 1
Indication: Skin And Soft Tissue
Requesting Provider: Dr Peralta
Pertinent Antimicrobial Allergies:
no known allergies
Height / Weight:
Height 5 ft 11 in
Actual Weight 142.598 kg
IBW in k.3
Pertinent Past Medical History: BMI 43; bilateral chronic lymphedema; recent S.pyogenes bacteremia
- Vital Signs / Lab Results
Temp Pulse Resp BP Pulse Ox
98.1 F 96 18 175/88 98
01/08/25 15:45 01/08/25 15:45 01/08/25 15:45 01/08/25 15:45 01/08/25 15:45
Lab Results - Hematology
01/08/25
11:29
WBC 7.5
Lab Results - Chemistry
01/08/25
11:29
BUN 13
Creatinine 0.7
Estimated Creat Clear > 125
Albumin 3.4 L
01/08/25
11:29
Lactic Acid 1.1
[2025-01-08] MEDS: ULTRAM 50 MG PO (21:11)
[2025-01-08] MEDS: FLOMAX 0.4 MG PO (21:12)
[2025-01-08] MEDS: MELATONIN 5 MG PO (21:12)
[2025-01-08] MEDS: LOVENOX 40 MG SC (21:12)
[2025-01-09 03:15] VITALS: BP 118/65
[2025-01-09] MEDS: TYLENOL 650 MG PO (04:18)
[2025-01-09 05:32] LABS: Hematocrit 36.1 % (39.0-52.0); Hemoglobin 11.7 g/dL (13.0-18.0); Mean Corp Hgb Conc. 32.4 g/dL (33.0-37.0); Mean Corpuscular Volume 86.4 fL (80.0-94.0); Platelet Count 292 10^3/uL (130-400); Red Cell Dist. Width 16.4 % (11.5-14.5)
[2025-01-09 05:59] LABS: Blood Urea Nitrogen 11 mg/dl (9-20); Calcium 7.9 mg/dl (8.4-10.2); Carbon Dioxide 30 mmol/L (22-30); Chloride 104 mmol/L (98-107); Estimated Creatinine Clearance 103 ml/min; Glucose 113 mg/dl (70-99); Magnesium 1.9 mg/dl (1.6-2.3); Potassium 4.8 mmol/L (3.5-5.1); Sodium 135 mmol/L (135-145); eGFR > 60.00
[2025-01-09 06:00] VITALS: BMI 43.6
[2025-01-09] MEDS: VANCOCIN 200 IV ×2 (06:12→12:23)
[2025-01-09] MEDS: ANCEF 10 IV ×3 (06:12→21:13)
[2025-01-09 07:00] VITALS: BP 105/63
--- NOTE | 2025-01-09 09:06 | W.PN.HOSP.TC ---
Today's Communication/Plan
-
see A/P
Assessment / Plan
Assessment / Plan
HPI: 74 yo M with PMH hypertension, chronic back pain, BL lymphedema, and prior provoked DVT 5 years ago; p/w left leg pain and swelling.
Patient was recently hospitalized from 12/24/24 - 12/28/24 for L leg cellulitis with strep pyogenes bacteremia. 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
He saw his visiting nurse 2 days [employer]NAGER S[employer] with concern for worsening infection and his PCP prescribed Keflex which he started on DOA.
He presented with LLE swelling and pain which have become worse. He also has wounds on his lower leg which have now started to drain. He c/o fever of 100.5 the night [employer].
He denies to CP, shortness of breath or other symptoms.
A/P:
# Recurrent LLE cellulitis
# Recent Streptococcus pyogenes Bacteremia
# Chronic BL lymphedema
LLE US negative for DVT
follow blood cultures
cont Ancef, vancomycin
Wound care CS
consider ID CS if not improving
Other medical conditions:
# Hypertension
cont home enalapril hydrochlorothiazide with hold parameter
# Prostate disease
continue finasteride and Flomax
# Chronic back pain with multiple back surgeries-7 surgeries
# History of DVT and PE
# Obesity with a BMI of 42
DVT prophylaxis-Lovenox BID given patient's BMI
CODE STATUS-full code
Anticipated Discharge: 24 - 48 hours
Subjective/Interval History
-
Date of Service: January 09, 2025
Objective Data
-
Labs:
Laboratory Results
01/09/25
05:14
WBC 7.3
Hgb 11.7 L
Hct 36.1 L
Plt Count 292
Sodium 135
Potassium 4.8
Chloride 104
Carbon Dioxide 30
BUN 11
Creatinine 0.9
Glucose 113 H
Calcium 7.9 L
Vital Signs:
Vital Signs
Temp Pulse Resp BP Pulse Ox
36.6 C 92 18 105/63 96
01/09/25 07:00 01/09/25 07:00 01/09/25 07:00 01/09/25 07:00 01/09/25 07:00
I&O
01/08/25 01/09/25 01/10/25
06:59 06:59 06:59
Intake Total 480 / 480
Output Total 250 / 250
Balance 230 / 230
Review of Systems
-
History Source: Patient
All other systems: Reviewed and negative
Physical Exam
-
General: Well Developed, Well Nourished, No Apparent Distress, Comfortable, Conversant and Morbidly Obese
HEENT: Normocephalic and Atraumatic
Respiratory: Clear to Auscultation and Non Labored Respirations; Negative Wheezes or Accessory Resp Muscle Use
Cardiac: Regular Rhythm and S1/S2
GI: Soft and Nontender
Musculoskeletal: Edema, Right Lower Extrem (chronic) and Edema, Left Lower Extrem (chronic)
Skin: Warm, Dry and Rash (LLE erythema, see wound care note )
Neuro: Awake, Alert and Oriented
Psych: Calm and Intact Judgement/Insight
Data Reviewed
-
Labs: Labs Reviewed by me
--- NOTE | 2025-01-09 09:18 | VNURNOTE ---
Chart reviewed. Patient is current with [facility]. Will continue to follow hospital course and DC plans.
--- NOTE | 2025-01-09 10:43 | WOUNDNOTE ---
[facility] RN note: Patient admitted with L lower leg cellulitis.
See H&P for complete history.
PMH: ED Past Medical History: HTN and Other (Chronic neck/back pain, DVT/PE, Cellulitis, )
ED Past Surgical History: Orthopedic (Neck fusion, Lumbar laminectomy T12, L1, L2, L3 fusion with rods and discs, Decompression herniate disc. )
Wound Location and type/assessment: Patient known to wound care, last seen 12/27/24 for L leg cellulitis. Now admitted with: L leg cellulitis and open venous ulcers draining large amt of serous drainage. Cleaned off thick slough, tolerated mechanical
debridement. Patient ambulated self with walker to bed. Sacrum intact, buttocks where cheeks meet with abrasions, dried scabs and chronic discolored skin from prolonged sitting. Patient confirms he sits allot in recliner chair at home which is sit
to stand, ambulates to . Since wounds he has not followed up at Lymphedema clinic at [place]. Patient asking for information regarding lymph clinics here at [place]. Will provide info in discharge instructions. Heels are intact, + pulses
audible with Doppler.
Appetite: Good.
Pressure redistribution devices in place: Accumax with air overlay, patient requested removal of air overlay states very uncomfortable. Pillows under calves.
Plan: Mesalt to dry dressing and kathie wraps knee high b/l applied. Called SPD for additional Mesalt, staff PIER [employer] assisting at bedside with wound care aware and will bring to room.
Will confirm orders with hospitalist and update nurse.
Updated care plan and will follow as needed.
Note to case management of equipment requested for discharge: Resume VN
Recommend follow up at Lymphedema clinic.
[2025-01-09] MEDS: DESENEX/MITRAZOL/ZEASORB 1 APPLIC TOPICAL ×2 (10:57→21:14)
[2025-01-09] MEDS: VASOTEC 5 MG PO (10:59)
[2025-01-09] MEDS: LOVENOX 40 MG SC ×2 (11:01→21:13)
[2025-01-09] MEDS: FLOMAX 0.4 MG PO ×2 (11:01→21:13)
[2025-01-09] MEDS: ORETIC 12.5 MG PO (11:01)
[2025-01-09] MEDS: PROSCAR 5 MG PO (11:01)
[2025-01-09] MEDS: ULTRAM 50 MG PO ×2 (11:13→21:13)
--- NOTE | 2025-01-09 13:17 | PHA.VAN.FU ---
Vancomycin Assessment / Plan
- Assessment
Renal Function: Stable
WBC's are: WNL
In the past 24 hrs, patient has been: Afebrile
Concomitant Antimicrobials: cefazolin
- Assessment - Therapeutic Drug Monitoring
Random Level: 10.4 (drawn 6 hours after 2nd dose)
- Dosing Plan
Adjust Regimen to: vancomycin 1250 mg Q12H
New Regimen Predicts: AUC (431), Peak (27.2), Trough (10.9)
Dosing Comments: t1/2= 7.9, Vd coeff.=0.5
- Monitoring Plan
Random Level: 01/10 0600 to assess vanco accumulation
- Follow Up
Pharmacy will continue to follow.
Vancomycin Follow UP
- -
Patient Age: 74
Patient Sex: Male
Vancomycin Day #: 2
Indication: Skin And Soft Tissue
Requesting Provider: Dr Peralta
Pertinent Antimicrobial Allergies:
no known allergies
Height / Weight:
Height 5 ft 11 in
Actual Weight 141.606 kg
IBW in k.3
Pertinent Past Medical History: BMI 43; bilateral chronic lymphedema; recent S.pyogenes bacteremia
- Vital Signs / Lab Results
Temp Pulse Resp BP Pulse Ox
97.8 F 92 18 105/63 96
01/09/25 07:00 01/09/25 07:00 01/09/25 07:00 01/09/25 07:00 01/09/25 07:00
Lab Results - Hematology
01/08/25 01/09/25
11:29 05:14
WBC 7.5 7.3
Lab Results - Chemistry
01/08/25 01/09/25
11:29 05:14
BUN 13 11
Creatinine 0.7 0.9
Estimated Creat Clear > 125 103
Albumin 3.4 L
01/08/25
11:29
Lactic Acid 1.1
Microbiology Results
01/08/25 11:46 Blood Culture - Preliminary
Blood/Venous No Growth in 24 hours- Final report to follow
01/08/25 11:29 Blood Culture - Preliminary
Blood/Venous No Growth in 24 hours- Final report to follow
Therapeutic Drug Monitoring
Vancomycin Trough 10.4 ug/ml (5-20) 01/09/25 05:14
[2025-01-09 15:00] VITALS: BP 125/66
--- NOTE | 2025-01-09 16:08 | CM ---
scheduling manager reviewed patient's chart and met with patient and patient lives with spouse in a 2 story home, patient is independent with adl's and uses a walker with ambulation, sleeps in a recliner, stair glide to 2nd floor, is current with [facility].
Plan: Home with [facility]
PCP: Jalen Booker
Pharmacy: [facility] in [place].
[2025-01-09] MEDS: VANCOCIN 275 MG IV (18:28)
[2025-01-09] MEDS: MELATONIN 5 MG PO (21:13)
[2025-01-09 23:30] VITALS: BP 129/69
[2025-01-10] MEDS: TYLENOL 650 MG PO (02:23)
[2025-01-10] MEDS: ANCEF 10 IV (06:23)
[2025-01-10 07:00] VITALS: BP 119/75
[2025-01-10] MEDS: VASOTEC 5 MG PO (07:47)
[2025-01-10] MEDS: DESENEX/MITRAZOL/ZEASORB 1 APPLIC TOPICAL (07:49)
[2025-01-10] MEDS: FLOMAX 0.4 MG PO (07:49)
[2025-01-10] MEDS: ORETIC 12.5 MG PO (07:49)
[2025-01-10] MEDS: PROSCAR 5 MG PO (07:49)
[2025-01-10] MEDS: LOVENOX 40 MG SC (07:49)
[2025-01-10 07:58] LABS: Hematocrit 35.2 % (39.0-52.0); Hemoglobin 11.6 g/dL (13.0-18.0); Mean Corp Hgb Conc. 33.0 g/dL (33.0-37.0); Mean Corpuscular Volume 85.9 fL (80.0-94.0); Platelet Count 263 10^3/uL (130-400); Red Cell Dist. Width 16.5 % (11.5-14.5)
[2025-01-10] MEDS: VANCOCIN 275 MG IV (08:17)
[2025-01-10 08:26] LABS: Blood Urea Nitrogen 12 mg/dl (9-20); Calcium 8.2 mg/dl (8.4-10.2); Carbon Dioxide 29 mmol/L (22-30); Chloride 103 mmol/L (98-107); Estimated Creatinine Clearance 115 ml/min; Glucose 99 mg/dl (70-99); Potassium 3.9 mmol/L (3.5-5.1); Sodium 137 mmol/L (135-145); eGFR > 60.00
--- NOTE | 2025-01-10 09:29 | PHA.VAN.FU ---
Addendum entered and electronically signed by Mayra Rivera Yani 01/10/25 09:44:
Agree with assessment and plan.
Level today stable - received last night's dose about 6H following 1g Q6 divided load
Consider peak/trough in next few days to better assess patient-specific PK
Original Note:
Vancomycin Assessment / Plan
- Assessment
Renal Function: Stable
WBC's are: WNL
In the past 24 hrs, patient has been: Afebrile
Concomitant Antimicrobials: cefazolin
- Assessment - Therapeutic Drug Monitoring
Random Level: 12.8 - drawn ~13H after dose of 1250mg
- Dosing Plan
Continue: 1250mg q12h
- Monitoring Plan
No level(s) ordered at this time: consider within next few days as patient approaches steady state
- Follow Up
Pharmacy will continue to follow.
Vancomycin Follow UP
- -
Patient Age: 74
Patient Sex: Male
Vancomycin Day #: 3
Indication: Skin And Soft Tissue
Requesting Provider: Dr Peralta
Pertinent Antimicrobial Allergies:
no known allergies
Height / Weight:
Height 5 ft 11 in
Actual Weight 141.606 kg
IBW in k.3
Pertinent Past Medical History: BMI 43; bilateral chronic lymphedema; recent S.pyogenes bacteremia
- Vital Signs / Lab Results
Temp Pulse Resp BP Pulse Ox
97.8 F 81 16 119/75 97
01/10/25 07:00 01/10/25 07:47 01/10/25 07:00 01/10/25 07:47 01/10/25 07:00
Lab Results - Hematology
01/08/25 01/09/25 01/10/25
11:29 05:14 07:38
WBC 7.5 7.3 5.7
Lab Results - Chemistry
01/08/25 01/09/25 01/10/25
11:29 05:14 07:38
BUN 13 11 12
Creatinine 0.7 0.9 0.8
Estimated Creat Clear > 125 103 115
Albumin 3.4 L
01/08/25
11:29
Lactic Acid 1.1
Microbiology Results
01/08/25 18:15 MRSA Screen - Final
Nose No Methicillin Resistant Staphylococcus aureus isolated.
01/08/25 11:46 Blood Culture - Preliminary
Blood/Venous No Growth in 24 hours- Final report to follow
01/08/25 11:29 Blood Culture - Preliminary
Blood/Venous No Growth in 24 hours- Final report to follow
Therapeutic Drug Monitoring
Vancomycin Trough 10.4 ug/ml (5-20) 01/09/25 05:14
Random Vancomycin 12.8 ug/ml 01/10/25 07:38
--- NOTE | 2025-01-10 09:44 | W.PN.HOSP.TC ---
Addendum entered and electronically signed by Faina Peralta MD 01/10/25 15:16:
# Localized Infection Only, Without Systemic Illness
Original Note:
Today's Communication/Plan
-
see A/P
Assessment / Plan
Assessment / Plan
HPI: 74 yo M with PMH hypertension, chronic back pain, BL lymphedema, and prior provoked DVT 5 years ago; p/w left leg pain and swelling.
Patient was recently hospitalized from 12/24/24 - 12/28/24 for L leg cellulitis with strep pyogenes bacteremia. He was discharged with a 10-day prescription of amoxicillin which he completed the night RETURN CHECKER.
He saw his visiting nurse 2 days RETURN CHECKER with concern for worsening infection and his PCP prescribed Keflex which he started on DOA.
He presented with LLE swelling and pain which have become worse. He also has wounds on his lower leg which have now started to drain. He c/o fever of 100.5 the night RETURN CHECKER.
He denies to CP, shortness of breath or other symptoms.
A/P:
# Recurrent LLE cellulitis
# Recent Streptococcus pyogenes Bacteremia
# Chronic BL lymphedema
LLE US negative for DVT
Admission blood cultures x2 negative
cont Ancef, vancomycin while in the hospital
LLE cellulitis improving and pt is adamant about discharge today, will DC on Keflex and Doxycycline for 14 days
appreciate wound care
Other medical conditions:
# Hypertension
cont home enalapril hydrochlorothiazide with hold parameter
# Prostate disease
continue finasteride and Flomax
# Chronic back pain with multiple back surgeries-7 surgeries
# History of DVT and PE
# Obesity with a BMI of 42
DVT prophylaxis-Lovenox BID given patient's BMI
CODE STATUS-full code
DW RN
Anticipated Discharge: Today
Subjective/Interval History
-
Date of Service: January 10, 2025
Objective Data
-
Labs:
Laboratory Results
01/10/25
07:38
WBC 5.7
Hgb 11.6 L
Hct 35.2 L
Plt Count 263
Sodium 137
Potassium 3.9
Chloride 103
Carbon Dioxide 29
BUN 12
Creatinine 0.8
Glucose 99
Calcium 8.2 L
Vital Signs:
Vital Signs
Temp Pulse Resp BP Pulse Ox
36.6 C 81 16 119/75 97
01/10/25 07:00 01/10/25 07:47 01/10/25 07:00 01/10/25 07:47 01/10/25 07:00
I&O
01/09/25 01/10/25 01/11/25
06:59 06:59 06:59
Intake Total 480 / 480 2395 / 2395
Output Total 250 / 250 900 / 900 450 / 450
Balance 230 / 230 1495 / 1495 -450 / -450
Review of Systems
-
History Source: Patient
All other systems: Reviewed and negative
Physical Exam
-
General: Well Developed, Well Nourished, No Apparent Distress, Comfortable, Conversant and Morbidly Obese
HEENT: Normocephalic and Atraumatic
Respiratory: Clear to Auscultation and Non Labored Respirations; Negative Wheezes or Accessory Resp Muscle Use
Cardiac: Regular Rhythm and S1/S2
GI: Soft and Nontender
Musculoskeletal: Edema, Right Lower Extrem (chronic) and Edema, Left Lower Extrem (chronic)
Skin: Warm, Dry and Rash (LLE erythema improving, see wound care note )
Neuro: Awake, Alert and Oriented
Psych: Calm and Intact Judgement/Insight
Data Reviewed
-
Ultrasound: Report Reviewed by me
Labs: Labs Reviewed by me
--- NOTE | 2025-01-10 10:34 | CM ---
MD entered order for discharge.
Spoke with patient to agrees with discharge today.
He said his Allison will drive him home.
He requested resumption for [facility] . Heather liaison aware.
PLAN Home with [facility]
[2025-01-10 11:08] VITALS: BP 148/93
--- NOTE | 2025-01-10 12:21 | W.DCSUMMARY ---
Discharge Summary
Discharge Data
Date of Admission: 01/08/25
Date of Discharge: 01/10/25
Total time spent discharging patient (in min): 40
-
Pending Results: No
Hospital Course
Principal Diagnosis:
Recurrent LLE cellulitis in setting of chronic BL LE lymphedema
Chronic Diagnoses:�
Hypertension, continue enalapril hydrochlorothiazide
Prostate disease, continue finasteride and Flomax
Chronic back pain with multiple back surgeries-7 surgeries
History of DVT and PE
Obesity with BMI of 42
Consultations:�
None
Procedures:�
None
Clinical course:�
This is a 74-year-old male with past medical history as stated above, who presented with recurrent left leg pain and swelling.
Of note, he was recently admitted for left leg cellulitis and strep pyogenes bacteremia, and had completed outpatient antibiotic amoxicillin.
Problem 1:
Recurrent LLE cellulitis in setting of chronic BL LE lymphedema.
His LLE US was negative for DVT.
His blood cultures were negative.
He received Ancef and IV vancomycin while in the hospital, and was discharged with oral Keflex and doxycycline for 14 days.
He can follow-up with wound care clinic outpatient.
As for the rest of his medical problems, they were stable during his hospital stay.
Discharge Plan
-
Patient Disposition: Home with Home Care
Discharge Diagnosis/Procedures: recurrent left leg cellulitis in setting of chronic bilateral lymphedema
Condition: Fair
Diet: As tolerated and Restrict fluids to 48 oz
Activity: As tolerated
Driving Restrictions: As prior to admission
Wound Care: Wound Care Instructions
L leg: clean with saline or soap and water(Can shower) Mesalt cut to fit open ulcers, alginate, abd pad and kerlix daily and prn drainage.
leg elevation when sitting
kathie wrap forefoot to below knee daily.
Buttocks: clean with soap and water, A&D ointment daily and prn soilage.
Follow up at Lymphedema clinic upon discharge. Call [phone] for an Apt.
Referrals:
Jalen Booker MD [Family Provider, [facility]] - in less than 1 week
Additional Discharge Medication Instructions: Continue Keflex and Doxycycline for 14 days.
Avoid sun exposure and dairy product (milk, cheese, yoghurt etc.) while on doxycycline
Prescriptions:
New
doxycycline hyclate 100 mg capsule
100 mg PO BID 14 Days Qty: 28 0RF
cephalexin 500 mg capsule
500 mg PO Q6H 14 Days Qty: 56 0RF
Continued
tamsulosin 0.4 MG capsule
0.4 mg PO BID
tizanidine 2 MG tablet
2 mg PO TIDPRN PRN (Reason: muscle spasms)
tramadol 50 MG tablet
50 mg PO BID
enalapril-hydrochlorothiazide 5-12.5 mg tablet
1 tab PO DAILY
omega 8-eya-ltt-fish oil [Fish Oil] 1,200 (144-216) mg Capsule
1 cap PO DAILY
therapeutic multivitamin Tablet
1 tab PO DAILY
finasteride 5 mg Tablet
5 mg PO DAILY
furosemide 20 mg tablet
20 mg PO DAILYPRN PRN (Reason: swelling)
tadalafil 5 mg tablet
5 mg PO DAILY
carboxymethylcellulose sodium [Refresh Tears] 0.5 % Drops
1 drp OPHTHALMIC (EYE) DAILYPRN PRN (Reason: dry eyes)
ibuprofen 200 mg Tablet
400 mg PO DAILYPRN PRN (Reason: mild pain)
Discontinued
cephalexin 500 mg capsule
500 mg PO TID
Discharge Orders:
Discharge Patient (As Directed); Ordered 01/10/25
Ordered By: Faina Peralta
Discharge Date and Time
Discharge Date/Time: 01/10/25 11:51
Print Language: NIUEAN
--- NOTE | 2025-01-10 13:59 | PN.CDI ---
CDI
- -
CDI:
Physician Documentation Request
Admit Date: 01/08/25 14:41
Dear Doctor Kathryn,
Patient admitted with recurrent LLE cellulitis
12/29 wbc 7.5 , has remained afebrile. 12/29 presenting heart rate 85-104 , respiratory rate 16-28
Please clarify which of the following most accurately describes the status of the patient's infection:
Sepsis
- Systemic manifestations of infection, with 2 or more SIRS criteria which include:
- Fever >100.9 degrees F or hypothermia < 96.8 degrees F
- Leukocytosis - WBC > 12,000 or leukopenia - WBC < 4,000 or > 10% bands
- Tachycardia > 90 beats per minute
- Tachypnea - RR > 20 breaths per minute or PaCO2 , 32mmHg
Source: [employer] Manual 2012
Localized Infection Only, Without Systemic Illness
- indicate the site/source, such as UTI, pneumonia etc.
Other
Use of terms such as suspected, likely, concern for, or probable (associated with a specific diagnosis that is being evaluated, monitored, or treated as if it exists) are acceptable and can be coded in the inpatient setting, when documented at the
time of discharge.
Thank you,
Giselle Díaz RN BSN
CDI Specialist
tiger text
Please use your independent medical judgment in providing your response.
== END 2025-01-10 11:51 | disposition home health service (06) | DRG 603 ==
LOC: 4 WEST ACU 14:41
PROVIDERS: ADMITTING PHYSICIAN Internal Medicine; EMERGENCY PHYSICIAN Emergency Medicine; FAMILY PHYSICIAN Family Medicine
DX: L03.116 Cellulitis of left lower limb (principal); Z68.41 Body mass index [BMI] 40.0-44.9, adult; I10 Essential (primary) hypertension; M54.9 Dorsalgia, unspecified; E66.9 Obesity, unspecified; G89.29 Other chronic pain; I89.0 Lymphedema, not elsewhere classified; N40.0 Benign prostatic hyperplasia without lower urinary tract symptoms; I25.10 Atherosclerotic heart disease of native coronary artery without angina pectoris; M79.89 Other specified soft tissue disorders; Z86.718 Personal history of other venous thrombosis and embolism; Z86.711 Personal history of pulmonary embolism; Z98.1 Arthrodesis status; Z82.49 Family history of ischemic heart disease and other diseases of the circulatory system; Z80.9 Family history of malignant neoplasm, unspecified
CPT/HCPCS: 80048; 80053; 80202; 83605; 83735; 83880; 85025; 85027; 87040; 87070; 93971; 96374; 99285